=== PATIENT | female | born 1950 | race Caucasian/White ===

== ENCOUNTER 2020-01-02 09:07 | Emergency (ER) | payer MEDICARE ==
--- NOTE | 2020-01-02 09:32 | ERPHSYRPT ---
- History of Present Illness Time Seen by Provider: 01/02/20 09:25 Source: patient Exam Limitations: no limitations Patient Subjective Stated Complaint: pt reports a fall while push mowing her lawn last evening, states she believes she tripped and she landed her arms outst retched. states upon waking this morning she has tenderness to the right hand, mainly her palm. reports pain is increased with pathology assistant or weight bearing. pt denies other injuries at this time. Triage Nursing Assessment: pt is aox3, pupils perrl, afebrile, resps easy and non labored, cap refill < 3 seconds, radial pulses strong and equal, pt skin pink warm dry. slight swelling noted to the palmar aspect of the right hand. small approx 2cm superficial abrasion is noted as well. no drainage noted at this time. pt sensation, ROM intact. Physician History: Patient is a 69-year-old female who presents to our ED with complaints of right hand pain. Patient was pushing a lawnmower yesterday when she tripped. Patient landed on her right outstretched arm. Patient awoke this morning with a sore sensation to her right hand primarily on the palmar surface. Pain described as an ache that is well localized. No radiation. Pain worse with weightbearing movement and making a fist. Pain is mild to moderate in intensity. Patient declined pain medication. No other injuries reported. No BHT or LOC. No neck pain. Cervical spine cleared clinically. No extremity numbness tingling or weakness. Patient able to move her hand and wrist normally. However these movements elicit pain. Patient denies chest pain shortness of breath. Patient is a diabetic. Patient states her sugars are well controlled. Patient voices no other complaints this time. Occurred: yesterday Method of Injury: fell Quality: intermittent Severity of Pain-Max: moderate Severity of Pain-Current: mild Extremities Pain Location: hand: right Modifying Factors: Improves With: movement, rest Associated Symptoms: none Allergies/Adverse Reactions: Penicillins Allergy (Mild, Verified 01/02/20 09:23) Home Medications: Aspirin [Baby Aspirin] 81 mg PO DAILY 10/26/12 [History] Insulin Glargine [Lantus Insulin] 23 unit SQ HS 10/26/12 [History] Metformin HCl 1000 mg [Glucophage 1000 MG] 1,000 mg PO BID 10/26/12 [History] Fluoxetine HCl [Prozac] 20 mg PO DAILY 03/17/14 [History] Oxycodone HCl/Acetaminophen [Percocet 5-325 mg Tablet] 1 each PO Q6H PRN PRN 02/14/15 [History] Prasugrel HCl [Effient] 10 mg PO DAILY 02/14/15 [History] Pravastatin Sodium 40 mg PO DAILY 02/14/15 [History] Ranitidine HCl 150 mg PO DAILY 02/14/15 [History] Hx Tetanus, Diphtheria Vaccination/Date Given: Yes Hx Influenza Vaccination/Date Given: Yes Hx Pneumococcal Vaccination/Date Given: Yes Immunizations Up to Date: Yes Travel Risk - International Travel Have you traveled outside of the country in past 3 weeks: No - Coronavirus Screening Are you exhibiting any of the following symptoms?: No Close contact with a COVID-19 positive Pt in past 14-21 Days: No - Review of Systems Constitutional: No Symptoms, No Fever, No Chills Eyes: No Symptoms Ears, Nose, & Throat: No Symptoms Respiratory: No Symptoms, No Cough, No Dyspnea Cardiac: No Symptoms, No Chest Pain, No Edema, No Syncope Abdominal/Gastrointestinal: No Symptoms, No Abdominal Pain, No Nausea, No Vomiting, No Diarrhea Genitourinary Symptoms: No Symptoms, No Dysuria Musculoskeletal: No Symptoms, No Back Pain, No Neck Pain Skin: No Symptoms, No Rash Neurological: No Symptoms, No Dizziness, No Focal Weakness, No Sensory Changes Psychological: No Symptoms Endocrine: No Symptoms Hematologic/Lymphatic: No Symptoms Immunological/Allergic: No Symptoms All Other Systems: Reviewed and Negative - Past Medical History Pertinent Past Medical History: Yes Neurological History: No Pertinent History ENT History: Cataracts Cardiac History: Hypertension, Other Respiratory History: Asthma Endocrine Medical History: Diabetes Type II Musculoskeletal History: Fractures GI Medical History: No Pertinent History History: No Pertinent History Psycho-Social History: Depression Female Reproductive Disorders: No Pertinent History Other Medical History: stints in the heart - Past Surgical History Past Surgical History: Yes Neuro Surgical History: No Pertinent History Cardiac: Cardiac Catheterization, Cardiac Stent Respiratory: No Pertinent History Gastrointestinal: Cholecystectomy Genitourinary: No Pertinent History Musculoskeletal: No Pertinent History Female Surgical History: No Pertinent History Other Surgical History: carpal tunnel. lt ankle surgery - Social History Smoking Status: Never smoker Exposure to second hand smoke: No Drug Use: none Patient Lives Alone: Yes - Female History Hx Now: No - Nursing Vital Signs Nursing Vital Signs: Initial Vital Signs Temperature 98.5 F 01/02/20 09:14 Pulse Rate 69 01/02/20 09:14 Respiratory Rate 18 01/02/20 09:14 Blood Pressure 181/71 01/02/20 09:14 O2 Sat by Pulse Oximetry 99 01/02/20 09:14 Pain Scale Pain Intensity 5 - Physical Exam General Appearance: no apparent distress, alert Eyes, Ears, Nose, Throat Exam: normal ENT inspection, moist mucous membranes Neck Exam: non-tender, supple, full range of motion Cardiovascular/Respiratory Exam: chest non-tender, normal breath sounds, regular rate/rhythm, no respiratory distress Abdominal Exam: non-tender, No guarding Back Exam: normal inspection, normal range of motion, No vertebral tenderness Shoulder Exam: normal inspection, non-tender, no evidence of injury (Right hand shows slight swelling at the dorsal aspect. Overlying soft tissue intact. No obvious deformity otherwise. No abrasions or lacerations. Nailbed and nail plates are intact. Cap refill less than 2 seconds. Compartments are soft.), normal ROM Elbow/Forearm Exam: normal inspection, non-tender, no evidence of injury, normal ROM Wrist Exam: normal inspection, non-tender, no evidence of injury, normal ROM Neuro/Tendon Exam: normal sensation, normal motor functions Mental Status Exam: alert, oriented x 3, cooperative Skin Exam: normal color, warm, dry SpO2 Interpretation: normal SpO2: 99 O2 Delivery: Room Air - Course Nursing assessment & vital signs reviewed: Yes - Radiology Exams Hand X-ray Interpretation: Teleradiologist Report (No fracture or dislocation. No acute pathology observed. Osteopenia chronic degenerative changes.) Ordered Tests: Active Orders 24 hr Category Date Time Status HAND (MINIMUM 3 VIEWS) Stat Exams 01/02/20 09:26 Completed - Progress Progress: improved Progress Note: 01/02/20 09:34 Patient reassessed. She feels well. Pain controlled without pain medication. Patient declined pain medication. X-ray negative for acute pathology. No fracture or dislocation. Osteopenia chronic degenerative changes observed. No other injury sustained due to her fall. The fall was not associated with any sort of neuro cardiovascular symptomology. We will discharge patient home. Wrist splint for comfort provided. Patient agrees to follow-up with her primary care doctor within 48 hours for reevaluation. 01/02/20 10:13 Counseled pt/family regarding: diagnosis, need for follow-up, rad results - Departure Departure Disposition: Home Clinical Impression: Fall, Hand sprain, Contusion of right palm, Osteopenia Condition: Stable Critical Care Time: No Referrals: ASIYA SIMON [Primary Care Provider] - Additional Instructions: Discharge/Care Plan JUANY HOU was seen on 01/02/20 in the Emergency Room. The patient was counseled regarding Diagnosis,Lab results, Imaging studies, need for follow up and when to return to the Emergency Room. Prescriptions given: Discharge Note I have spoken with the patient and/or caregivers. I have explained the patient's condition, diagnosis and treatment plan based on the information available to me at this time. I have answered the patient's and/or caregiver's questions and addressed any concerns. The patient and/or caregivers have as good understanding of the patient's diagnosis, condition and treatment plan as can be expected at this point. The vital signs have been stable. The patient's condition is stable and appropriate for discharge from the emergency department. The patient will pursue further outpatient evaluation with the primary care physician or other designated or consulting physician as outlined in the discharge instructions. The patient and/or caregivers are agreeable to this plan of care and follow-up instructions have been explained in detail. The patient and/or caregivers have received these instruction. The patient/and or caregivers are aware that any significant change in condition or worsening of symptoms should prompt an immediate return to this or the closest emergency department or call 911.
--- NOTE | 2020-01-02 10:08 | XRAY ---
Indication: Pain following fall. Comparison: October 07, 2013. 3 view right hand again demonstrates osteopenia, minimal degenerative changes all IP joints, and radioulnar carpal degenerative chondrocalcinosis. No new/acute bony, articular, or soft tissue abnormalities.
[2020-01-02 10:10] VITALS: BP 163/78; PULSE 62
[2020-01-02 10:15] VITALS: O2SAT 99
== END 2020-01-02 10:24 | disposition home or self-care (01) ==
LOC: ED 09:07
DX: S63.91XA Sprain of unspecified part of right wrist and hand, initial encounter (principal); S60.221A Contusion of right hand, initial encounter; W17.89XA Other fall from one level to another, initial encounter; Y93.H2 Activity, gardening and landscaping; M85.80 Other specified disorders of bone density and structure, unspecified site
CPT/HCPCS: 73130; 99283; L3908

== ENCOUNTER 2021-11-06 11:15 | Emergency (ER) | payer MEDICARE ==
--- NOTE | 2021-11-06 11:54 | ERPHSYRPT ---
- History of Present Illness Source: patient Exam Limitations: no limitations Patient Subjective Stated Complaint: Pt states "I started to itch on my right elbow last week and the quick care gave me a pill and some cream. That elbow is better but now I itch on the other arm." Triage Nursing Assessment: PT presented alert and oriented X 3, skin wpd. Pt ambulates with an upright steady gait. pt resting comfortably on the bed, no rash noted. Physician History: 71 yo wf w L posterior upper arm pruritis/erythema x2 days. Pt had a similar place on her R posterior olecranon 1 wk ago which was treated w Keflex/Bactroban ointment per [facility]. She denies fever/ST/N/V/D/new meds/environmental exposures. R olecranon area improved. Timing/Duration: other (2 days) Quality: itchy Severity: mild Location: other (L posterior, upper arm) Possible Causes: no cause identified Modifying Factors: Improves With: scratching Associated Symptoms: rash, No blisters, No change in skin texture, No difficulty breathing, No edema, No fever, No flushing, No headache, No hives, No jaundice, No malaise, No nasal congestion, No numbness, No pallor, No paresthesia, No petechiae, No sore throat, No swelling/mass/lumps, No tingling Allergies/Adverse Reactions: Penicillins Allergy (Mild, Verified 07/06/21 13:32) Home Medications: Aspirin [Baby Aspirin] 81 mg PO DAILY 10/26/12 [History] Insulin Glargine [Lantus Insulin] 23 unit SQ HS 10/26/12 [History] Metformin HCl 1000 mg [Glucophage 1000 MG] 1,000 mg PO BID 10/26/12 [History] Pravastatin Sodium 40 mg PO DAILY 02/14/15 [History] Alendronate Sodium 70 mg [Fosamax 70 MG] 70 mg PO Q7D@0600 07/06/21 [History] Amlodipine Besylate 5 mg [Norvasc 5 mg] 5 mg PO DAILY 07/06/21 [History] Esomeprazole Magnesium [Nexium] 40 mg PO DAILY 07/06/21 [History] Gabapentin [Neurontin] 300 mg PO BID 07/06/21 [History] Liraglutide [Victoza 2-Krunal] 1.2 mg SQ DAILY 07/06/21 [History] Losartan Potassium 50 mg [Cozaar 50 MG] 25 mg PO BID 07/06/21 [History] Meclizine HCl 25 mg PO Q12H PRN PRN 07/06/21 [History] Semaglutide [Ozempic] 1 mg SQ UD 07/06/21 [History] Hx Tetanus, Diphtheria Vaccination/Date Given: Yes Hx Influenza Vaccination/Date Given: Yes Hx Pneumococcal Vaccination/Date Given: Yes Immunizations Up to Date: Yes Travel Risk - International Travel Have you traveled outside of the country in past 3 weeks: No - Coronavirus Screening Are you exhibiting any of the following symptoms?: No Close contact with a COVID-19 positive Pt in past 14-21 Days: No - Vaccine Status Have you recieved a Covid-19 vaccination: Yes Beauty Specialist: Moderna - Vaccination Dates Date of 2cond Vaccination (if applicable): 2020 - Review of Systems Constitutional: No Symptoms Eyes: No Symptoms Ears, Nose, & Throat: No Symptoms Respiratory: No Symptoms Cardiac: No Symptoms Abdominal/Gastrointestinal: No Symptoms Genitourinary Symptoms: No Symptoms Musculoskeletal: No Symptoms Skin: No Symptoms, Rash Neurological: No Symptoms Psychological: No Symptoms Endocrine: No Symptoms Hematologic/Lymphatic: No Symptoms Immunological/Allergic: No Symptoms - Past Medical History Pertinent Past Medical History: Yes Neurological History: No Pertinent History ENT History: Cataracts Cardiac History: Hypertension, Other Respiratory History: Asthma Endocrine Medical History: Diabetes Type II Musculoskeletal History: Fractures GI Medical History: No Pertinent History History: No Pertinent History Psycho-Social History: Depression Female Reproductive Disorders: No Pertinent History Other Medical History: stints in the heart - Past Surgical History Past Surgical History: Yes Neuro Surgical History: No Pertinent History Cardiac: Cardiac Catheterization, Cardiac Stent Respiratory: No Pertinent History Gastrointestinal: Cholecystectomy Genitourinary: No Pertinent History Musculoskeletal: No Pertinent History Female Surgical History: No Pertinent History Other Surgical History: carpal tunnel. lt ankle surgery - Social History Smoking Status: Never smoker Exposure to second hand smoke: No Drug Use: none Patient Lives Alone: No Significant Family History: no pertinent family hx - Nursing Vital Signs Nursing Vital Signs: Initial Vital Signs Temperature 98.4 F 11/06/21 11:22 Pulse Rate 73 11/06/21 11:22 Respiratory Rate 18 11/06/21 11:22 Blood Pressure 134/67 11/06/21 11:22 O2 Sat by Pulse Oximetry 98 11/06/21 11:22 Pain Scale Pain Intensity 0 WNL - Physical Exam General Appearance: no apparent distress Eye Exam: PERRL/EOMI Ears, Nose, Throat Exam: normal ENT inspection, TMs normal, pharynx normal, moist mucous membranes Neck Exam: normal inspection, non-tender, supple, full range of motion, No meningismus, No mass, No Brudzinski, No Kernig's Respiratory Exam: normal breath sounds, lungs clear, airway intact Cardiovascular Exam: regular rate/rhythm, normal heart sounds, normal peripheral pulses, capillary refill <2 sec, No murmur Gastrointestinal/Abdomen Exam: soft, normal bowel sounds Back Exam: normal inspection, normal range of motion Extremity Exam: other (Small, erythematous excoriated area L posterior tricel area) Neurologic Exam: alert, oriented x 3, cooperative, rn practitioner II-XII nml as tested, normal mood/affect, nml cerebellar function, nml station & gait, sensation nml, No motor deficits, No sensory deficit Skin Exam: rash Lymphatic Exam: No adenopathy SpO2 Interpretation: normal SpO2: 98 O2 Delivery: Room Air - Course Nursing assessment & vital signs reviewed: Yes - Progress Progress Note: 11/06/21 11:57 Rash most likely contact dermatitis/Doubt cellulitis at this time Counseled pt/family regarding: diagnosis, need for follow-up - Departure Departure Disposition: Home Clinical Impression: Contact dermatitis Condition: Stable Critical Care Time: No Referrals: ASIYA SIMON [Primary Care Provider] - Follow up/PCP as directed Instructions: Contact Dermatitis (DC) Additional Instructions: Apply Kenalog cream to affected area 2-3 times a day for 10-14 days Follow up with your family MD in 2-3 days Return to ER for increasing redness or temperature greater than 100.5 Atarax for itching as needed Prescriptions: Hydroxyzine HCl 25 mg [Atarax 25 mg] 25 mg PO QID PRN PRN #20 tablet PRN Reason: Itching Triamcinolone 0.1% Cream [Kenalog 0.1% Cream 15 gm] 0.5 gm TP TID #15 tu
[2021-11-06 12:19] VITALS: BP 130/84; PULSE 70
[2021-11-06 14:15] VITALS: O2SAT 98
== END 2021-11-06 12:19 | disposition home or self-care (01) ==
LOC: ED 11:15
DX: L25.9 Unspecified contact dermatitis, unspecified cause (principal); L29.9 Pruritus, unspecified; I10 Essential (primary) hypertension; E11.9 Type 2 diabetes mellitus without complications; Z79.84 Long term (current) use of oral hypoglycemic drugs; Z79.899 Other long term (current) drug therapy
CPT/HCPCS: 99283

== ENCOUNTER 2022-10-30 09:59 | Emergency (ER) | payer MEDICARE ==
--- NOTE | 2022-10-30 10:06 | ERPHSYRPT ---
- History of Present Illness Time Seen by Provider: 10/30/22 10:06 Source: patient Exam Limitations: no limitations Physician History: This is a 72-year-old white female patient of Dr. Sherry Simon who is an insulin-dependent diabetic, has hypertension, hyperlipidemia, asthma and coronary artery disease and presents with rash and areas of itching in her bilateral upper extremities and lower lower extremities. She did not see any bug bites or insect bites. She has no known new exposures. However, she was at a family member's home and outside a couple days ago. The only new medication she stated that she has is iron which she has been taking for a month. Patient had "skin rash" a year ago, 10/2021, and patient was given a prescription for Atarax and topical triamcinolone which helped her symptoms. However, after being evaluated and treated in the [facility] over the last day or 2 with Benadryl and topical triamcinolone, her symptoms or not any better. Patient denies shortness of breath. She denies chest pain. She has had no nausea vomiting or diarrhea. She has no abdominal pain. Patient is never seen an certified hyperbaric technologist or sumo wrestler. Timing/Duration: day(s) Quality: painful Severity: mild (To moderate) Location: extremities (Bilateral upper extremities and bilateral lower extremities below the knee) Possible Causes: exposure to allergen, other (Possibly insect bite) Associated Symptoms: rash, No difficulty breathing, No fever, No sore throat Allergies/Adverse Reactions: Penicillins Allergy (Mild, Verified 10/30/22 10:17) Home Medications: Aspirin [Baby Aspirin] 81 mg PO DAILY 10/26/12 [History] Insulin Glargine [Lantus Insulin] 23 unit SQ HS 10/26/12 [History] Metformin HCl 1000 mg [Glucophage 1000 MG] 1,000 mg PO BID 10/26/12 [History] Pravastatin Sodium 40 mg PO DAILY 02/14/15 [History] Alendronate Sodium 70 mg [Fosamax 70 MG] 70 mg PO Q7D@0600 07/06/21 [History] Amlodipine Besylate 5 mg [Norvasc 5 mg] 5 mg PO DAILY 07/06/21 [History] Esomeprazole Magnesium [Nexium] 40 mg PO DAILY 07/06/21 [History] Gabapentin [Neurontin] 300 mg PO BID 07/06/21 [History] Liraglutide [Victoza 2-Krunal] 1.2 mg SQ DAILY 07/06/21 [History] Losartan Potassium 50 mg [Cozaar 50 MG] 25 mg PO BID 07/06/21 [History] Meclizine HCl 25 mg PO Q12H PRN PRN 07/06/21 [History] Semaglutide [Ozempic] 1 mg SQ UD 07/06/21 [History] Hx Tetanus, Diphtheria Vaccination/Date Given: Yes Hx Influenza Vaccination/Date Given: Yes Hx Pneumococcal Vaccination/Date Given: Yes Travel Risk - International Travel Have you traveled outside of the country in past 3 weeks: No - Coronavirus Screening Are you exhibiting any of the following symptoms?: No Close contact with a COVID-19 positive Pt in past 14-21 Days: No - Vaccine Status Have you recieved a Covid-19 vaccination: Yes Press Tender 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: Ster[employer]im[employer] - Vaccination Dates Date of 2cond Vaccination (if applicable): 2020 - Review of Systems Constitutional: No Symptoms Eyes: No Symptoms Ears, Nose, & Throat: No Symptoms Respiratory: No Symptoms Cardiac: No Symptoms Abdominal/Gastrointestinal: No Symptoms Genitourinary Symptoms: No Symptoms Musculoskeletal: No Symptoms Skin: Rash Neurological: No Symptoms Psychological: No Symptoms Endocrine: No Symptoms Hematologic/Lymphatic: No Symptoms Immunological/Allergic: No Symptoms All Other Systems: Reviewed and Negative - Past Medical History Pertinent Past Medical History: Yes Neurological History: No Pertinent History ENT History: Cataracts Cardiac History: Hypertension, Other Respiratory History: Asthma Endocrine Medical History: Diabetes Type II Musculoskeletal History: Fractures GI Medical History: No Pertinent History History: No Pertinent History Psycho-Social History: Depression Female Reproductive Disorders: No Pertinent History Other Medical History: stints in the heart - Past Surgical History Past Surgical History: Yes Neuro Surgical History: No Pertinent History Cardiac: Cardiac Catheterization, Cardiac Stent Respiratory: No Pertinent History Gastrointestinal: Cholecystectomy Genitourinary: No Pertinent History Musculoskeletal: No Pertinent History Female Surgical History: No Pertinent History Other Surgical History: carpal tunnel. lt ankle surgery - Social History Smoking Status: Never smoker Exposure to second hand smoke: No Drug Use: none Patient Lives Alone: No Significant Family History: no pertinent family hx - Nursing Vital Signs Nursing Vital Signs: Initial Vital Signs Temperature 97.7 F 10/30/22 10:08 Pulse Rate 63 10/30/22 10:08 Blood Pressure 141/75 10/30/22 10:08 O2 Sat by Pulse Oximetry 100 10/30/22 10:08 Pain Scale Pain Intensity 0 - Physical Exam General Appearance: no apparent distress, alert, anxiety Eye Exam: PERRL/EOMI, eyes nml inspection Ears, Nose, Throat Exam: normal ENT inspection, moist mucous membranes Neck Exam: normal inspection, non-tender, supple, full range of motion Respiratory Exam: normal breath sounds, lungs clear, airway intact, No chest tenderness, No respiratory distress Cardiovascular Exam: regular rate/rhythm, normal heart sounds, normal peripheral pulses Gastrointestinal/Abdomen Exam: soft, normal bowel sounds, No tenderness Pelvic Exam: not done Rectal Exam: not done Back Exam: normal inspection, normal range of motion, No CVA tenderness, No vertebral tenderness Extremity Exam: normal range of motion, pelvis stable Neurologic Exam: alert, oriented x 3, cooperative, post graduate intern II-XII nml as tested, normal mood/affect, nml cerebellar function, nml station & gait, sensation nml Skin Exam: rash (There are areas of punctate rash with some eschars overlying them on the bilateral upper extremities and bilateral lower extremities below the knee where she may have been scratching. There is also some mild fine nonraised pink rash patches present in these areas as well. No cellulitis present) Lymphatic Exam: No adenopathy SpO2 Interpretation: normal O2 Delivery: Room Air - Course Nursing assessment & vital signs reviewed: Yes - Progress Progress: unchanged Counseled pt/family regarding: diagnosis, need for follow-up, rad results - Departure Departure Disposition: Home Clinical Impression: Dermatitis, Pruritus Condition: Stable Critical Care Time: No Referrals: ASIYA SIMON [Primary Care Provider] - Follow up/PCP as directed Additional Instructions: Keep all rash sites clean with soap and water. Keep the areas moist with a unscented lotion. Stop your Benadryl. Use Atarax and prednisone for the rash and itching. Call your primary care provider tomorrow, 10/31/2022 to make arrangements for a follow-up appointment in the next 3 to 5 days. Prescriptions: Hydroxyzine HCl 25 mg [Atarax 25 mg] 25 mg PO TID PRN #20 tablet PRN Reason: Itching Prednisone 10 mg [Deltasone 10 mg] 10 mg PO TID #12 tablet
[2022-10-30 10:17] VITALS: BP 141/75; PULSE 63; O2SAT 100
[2022-10-30] MEDS ORDERED: DELTASONE 20 MG PO ONE (10:28)
[2022-10-30] MEDS ORDERED: ATARAX 25 MG PO ONE (10:28)
== END 2022-10-30 10:46 | disposition home or self-care (01) ==
LOC: ED 09:59
DX: L30.9 Dermatitis, unspecified (principal); L29.9 Pruritus, unspecified; E11.9 Type 2 diabetes mellitus without complications; I10 Essential (primary) hypertension; E78.5 Hyperlipidemia, unspecified; Z79.4 Long term (current) use of insulin; Z79.84 Long term (current) use of oral hypoglycemic drugs; Z79.85 Long-term (current) use of injectable non-insulin antidiabetic drugs; Z79.899 Other long term (current) drug therapy
CPT/HCPCS: 99282; A9270-GY

== ENCOUNTER 2022-12-04 13:24 | Emergency (ER) | payer MEDICARE ==
[2022-12-04 14:18] VITALS: BP 143/64; PULSE 68; O2SAT 98
--- NOTE | 2022-12-04 14:57 | ERPHSYRPT ---
- History of Present Illness Time Seen by Provider: 12/04/22 13:34 Source: patient Exam Limitations: no limitations Patient Subjective Stated Complaint: Rash- itching Triage Nursing Assessment: Patient ambulated back to ED and transferred self to bed. Patient A+o x 3. Patient's skin pink, warm and dry. Patient states she woke up itching to her entire body at 0400. Patient denies pain or discomfort. Patient has small rash noted to right inner arm. Physician History: 72-year-old female with history of coronary artery disease status post stenting, diabetes mellitus poorly controlled presented in the ER with chief complaint of itching. Patient reports she woke up this morning with itching all over more in the left upper extremity and left lower leg. Denies any new medications/detergents/soap/shampoo or lotion use. Does report having similar symptoms in the past. Denies any difficulty breathing, palpitation or throat closing sensations. Timing/Duration: today Quality: itchy Severity: moderate Location: generalized Possible Causes: no cause identified Associated Symptoms: rash, No blisters, No edema, No fever, No flushing, No paresthesia, No swelling/mass/lumps Allergies/Adverse Reactions: Penicillins Allergy (Mild, Verified 12/04/22 14:08) Home Medications: Aspirin [Baby Aspirin] 81 mg PO DAILY 10/26/12 [History] Insulin Glargine [Lantus Insulin] 23 unit SQ HS 10/26/12 [History] Metformin HCl 1000 mg [Glucophage 1000 MG] 1,000 mg PO BID 10/26/12 [History] Pravastatin Sodium 40 mg PO DAILY 02/14/15 [History] Alendronate Sodium 70 mg [Fosamax 70 MG] 70 mg PO Q7D@0600 07/06/21 [H istory] Amlodipine Besylate 5 mg [Norvasc 5 mg] 5 mg PO DAILY 07/06/21 [History] Esomeprazole Magnesium [Nexium] 40 mg PO DAILY 07/06/21 [History] Gabapentin [Neurontin] 300 mg PO BID 07/06/21 [History] Liraglutide [Victoza 2-Krunal] 1.2 mg SQ DAILY 07/06/21 [History] Losartan Potassium 50 mg [Cozaar 50 MG] 25 mg PO BID 07/06/21 [History] Meclizine HCl 25 mg PO Q12H PRN PRN 07/06/21 [History] Semaglutide [Ozempic] 1 mg SQ UD 07/06/21 [History] Hx Tetanus, Diphtheria Vaccination/Date Given: Yes Hx Influenza Vaccination/Date Given: Yes Hx Pneumococcal Vaccination/Date Given: Yes Immunizations Up to Date: Yes Travel Risk - International Travel Have you traveled outside of the country in past 3 weeks: No - Coronavirus Screening Are you exhibiting any of the following symptoms?: No Close contact with a COVID-19 positive Pt in past 14-21 Days: No - Vaccine Status Have you recieved a Covid-19 vaccination: Yes 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[employer] - Vaccination Dates Date of 2cond Vaccination (if applicable): 2020 - Review of Systems Constitutional: No Symptoms Ears, Nose, & Throat: No Symptoms Respiratory: No Symptoms Cardiac: No Symptoms Genitourinary Symptoms: No Symptoms Musculoskeletal: No Symptoms Skin: Pruritis, Skin Lesions Neurological: No Symptoms Psychological: No Symptoms Hematologic/Lymphatic: No Symptoms Immunological/Allergic: No Symptoms - Past Medical History Pertinent Past Medical History: Yes Neurological History: No Pertinent History ENT History: Cataracts Cardiac History: Hypertension, Other Respiratory History: Asthma Endocrine Medical History: Diabetes Type II Musculoskeletal History: Fractures GI Medical History: No Pertinent History History: No Pertinent History Psycho-Social History: Depression Female Reproductive Disorders: No Pertinent History Other Medical History: stints in the heart - Past Surgical History Past Surgical History: Yes Neuro Surgical History: No Pertinent History Cardiac: Cardiac Catheterization, Cardiac Stent Respiratory: No Pertinent History Gastrointestinal: Cholecystectomy Genitourinary: No Pertinent History Musculoskeletal: No Pertinent History Female Surgical History: No Pertinent History Other Surgical History: carpal tunnel. lt ankle surgery - Social History Smoking Status: Never smoker Exposure to second hand smoke: No Drug Use: none Patient Lives Alone: No Significant Family History: no pertinent family hx - Nursing Vital Signs Nursing Vital Signs: Initial Vital Signs Temperature 97.2 F 12/04/22 14:09 Pulse Rate 68 12/04/22 14:09 Respiratory Rate 18 12/04/22 14:09 Blood Pressure 143/64 12/04/22 14:09 O2 Sat by Pulse Oximetry 98 12/04/22 14:09 Pain Scale Pain Intensity 0 - Physical Exam General Appearance: no apparent distress Eye Exam: PERRL/EOMI Ears, Nose, Throat Exam: normal ENT inspection, pharynx normal Neck Exam: normal inspection, non-tender, supple, full range of motion Respiratory Exam: normal breath sounds, lungs clear Cardiovascular Exam: regular rate/rhythm, normal heart sounds Back Exam: normal inspection Extremity Exam: normal range of motion Neurologic Exam: alert, oriented x 3, cooperative, 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 Distinct scattered areas of redness on the left lower extremity.) SpO2 Interpretation: normal SpO2: 98 O2 Delivery: Room Air - Progress Progress: unchanged Progress Note: 12/04/22 14:54 72-year-old female with history of coronary artery disease status post stenting, diabetes mellitus poorly controlled presented in the ER with chief complaint of itching. Patient reports she woke up this morning with itching all over more in the left upper extremity and left lower leg. Denies any new medications /detergents/soap/shampoo or lotion use. Does report having similar symptoms in the past. Denies any difficulty breathing, palpitation or throat closing sensations. Patient has distinct areas of redness and itching around. Could be insect bite. Could be allergic reaction to something she came across. Patient blood sugar is not well controlled, we will not give her systemic steroid but topical steroid and hydroxyzine. Outpatient follow-up recommended. Discussed signs symptoms of worsening needing return to ER which she seems understanding. Counseled pt/family regarding: diagnosis, need for follow-up Medical Desision Making - Risk of complications The pt has a mod risk of morbidity or mortality based on: Need for prescription drug management - Departure Departure Disposition: Home Clinical Impression: Pruritus Condition: Stable Critical Care Time: No Referrals: ASIYA SIMON [Primary Care Provider] - Follow up with PCP 1 day Instructions: Skin Rash (DC) Additional Instructions: Follow-up with primary care for reevaluation. Take hydroxyzine as needed for itching. Return to ER for worsening of rash or if having difficulty breathing/throat closing sensations etc. Prescriptions: Hydroxyzine HCl 25 mg [Atarax 25 mg] 25 mg PO Q6H PRN #12 tablet PRN Reason: Itching Betamethasone/Propylene Glyc [Betamethasone Dp Aug 0.05% Crm] 30 gm TP TID 7 Days #1 tu
== END 2022-12-04 15:14 | disposition home or self-care (01) ==
LOC: ED 13:24
DX: L29.9 Pruritus, unspecified (principal); E11.9 Type 2 diabetes mellitus without complications; I10 Essential (primary) hypertension; Z79.4 Long term (current) use of insulin; Z79.84 Long term (current) use of oral hypoglycemic drugs; Z79.85 Long-term (current) use of injectable non-insulin antidiabetic drugs; Z79.899 Other long term (current) drug therapy
CPT/HCPCS: 99281

== ENCOUNTER 2022-12-17 10:03 | Emergency (ER) | payer MEDICARE ==
[2022-12-17 10:17] VITALS: BP 120/66; PULSE 70; RESP 18; TEMP 97.9
[2022-12-17 10:18] VITALS: O2SAT 98
--- NOTE | 2022-12-17 10:39 | ERPHSYRPT ---
- History of Present Illness Time Seen by Provider: 12/17/22 10:20 Source: patient Exam Limitations: no limitations Patient Subjective Stated Complaint: Skin issues to left lower leg Triage Nursing Assessment: Patient ambulated back to ED and transferred self to bed. Patient A+O X 3. Patient's skin pink, warm and dry. Patient states she has been itching her entire body from a rash she had two weeks ago and was recently seen and given PRN atarax and cream, which she is out. Patient states she has scratched her lower left outer leg during itching causing two open areas. Patient complains of pain 4/10. Left lower outer leg noted to have two scabbed areas that are red, swollen and warm. Physician History: This is a 72-year-old white female patient who for last 2 weeks had been complaining of rash over left lower leg and itching associated with it. She is scratched the leg to the point where now she has secondary skin infection. It is red it is warm. Patient had been given Atarax and a topical cream to use. She is out of the cream and the Atarax. She has had no fevers. This on the anterior lateral aspect of her left lower extremity. Patient is diabetic, has hyperlipidemia and hypertension. Timing/Duration: week(s) (2) Quality: itchy Severity: mild (To moderate) Location: extremities ( anterior lateral aspect left lower leg below the knee) Modifying Factors: Improves With: antihistamine Allergies/Adverse Reactions: Penicillins Allergy (Mild, Verified 12/17/22 10:07) Home Medications: Aspirin [Baby Aspirin] 81 mg PO DAILY 10/26/12 [History] Insulin Glargine [Lantus Insulin] 23 unit SQ HS 10/26/12 [History] Metformin HCl 1000 mg [Glucophage 1000 MG] 1,000 mg PO BID 10/26/12 [History] Pravastatin Sodium 40 mg PO DAILY 02/14/15 [History] Alendronate Sodium 70 mg [Fosamax 70 MG] 70 mg PO Q7D@0600 07/06/21 [History] Amlodipine Besylate 5 mg [Norvasc 5 mg] 5 mg PO DAILY 07/06/21 [History] Esomeprazole Magnesium [Nexium] 40 mg PO DAILY 07/06/21 [History] Gabapentin [Neurontin] 300 mg PO BID 07/06/21 [History] Liraglutide [Victoza 2-Krunal] 1.2 mg SQ DAILY 07/06/21 [History] Losartan Potassium 50 mg [Cozaar 50 MG] 25 mg PO BID 07/06/21 [History] Meclizine HCl 25 mg PO Q12H PRN PRN 07/06/21 [History] Semaglutide [Ozempic] 1 mg SQ UD 07/06/21 [History] Hx Tetanus, Diphtheria Vaccination/Date Given: Yes Hx Influenza Vaccination/Date Given: Yes Hx Pneumococcal Vaccination/Date Given: Yes Immunizations Up to Date: Yes Travel Risk - International Travel Have you traveled outside of the country in past 3 weeks: No - Coronavirus Screening Are you exhibiting any of the following symptoms?: No Close contact with a COVID-19 positive Pt in past 14-21 Days: No - Vaccine Status Have you recieved a Covid-19 vaccination: 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[employer] - Vaccination Dates Date of 2cond Vaccination (if applicable): 2020 - Review of Systems Constitutional: No Symptoms Eyes: No Symptoms Ears, Nose, & Throat: No Symptoms Respiratory: No Symptoms Cardiac: No Symptoms Abdominal/Gastrointestinal: No Symptoms Genitourinary Symptoms: No Symptoms Musculoskeletal: No Symptoms Skin: Cellulitis (Anterior aspect left lower extremity below the knee) Neurological: No Symptoms Psychological: No Symptoms Endocrine: No Symptoms Hematologic/Lymphatic: No Symptoms Immunological/Allergic: No Symptoms All Other Systems: Reviewed and Negative - Past Medical History Pertinent Past Medical History: Yes Neurological History: No Pertinent History ENT History: Cataracts Cardiac History: Hypertension, Other Respiratory History: Asthma Endocrine Medical History: Diabetes Type II Musculoskeletal History: Fractures GI Medical History: No Pertinent History History: No Pertinent History Psycho-Social History: Depression Female Reproductive Disorders: No Pertinent History Other Medical History: stints in the heart - Past Surgical History Past Surgical History: Yes Neuro Surgical History: No Pertinent History Cardiac: Cardiac Catheterization, Cardiac Stent Respiratory: No Pertinent History Gastrointestinal: Cholecystectomy Genitourinary: No Pertinent History Musculoskeletal: No Pertinent History Female Surgical History: No Pertinent History Other Surgical History: carpal tunnel. lt ankle surgery - Social History Smoking Status: Never smoker Exposure to second hand smoke: No Drug Use: none Patient Lives Alone: No Significant Family History: no pertinent family hx - Nursing Vital Signs Nursing Vital Signs: Initial Vital Signs Temperature 97.9 F 12/17/22 10:10 Pulse Rate 70 12/17/22 10:10 Respiratory Rate 18 12/17/22 10:10 Blood Pressure 120/66 12/17/22 10:10 O2 Sat by Pulse Oximetry 96 12/17/22 10:10 Pain Scale Pain Intensity 4 - Physical Exam General Appearance: no apparent distress, alert, anxiety Eye Exam: PERRL/EOMI, eyes nml inspection Ears, Nose, Throat Exam: normal ENT inspection, moist mucous membranes Neck Exam: normal inspection, non-tender, supple, full range of motion Respiratory Exam: airway intact, No chest tenderness, No respiratory distress Gastrointestinal/Abdomen Exam: No tenderness Pelvic Exam: not done Rectal Exam: not done Back Exam: normal inspection, normal range of motion, No CVA tenderness, No vertebral tenderness Extremity Exam: normal range of motion, pelvis stable, inflammation (Anterior lateral aspect left lower leg below the knee), tenderness (Anterior lateral aspect left lower extremity below the knee) Neurologic Exam: alert, oriented x 3, cooperative, 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 The level complexity and the work-up performed is based on review the patient's past medical history, review of the patient's medication list, review the patient's allergy list, history present illness and physical findings on examination. This patient does not require laboratory or radiographic studies. Patient has cellulitis left lower extremity. This is likely a secondary skin infection secondary to patient scratching her left lower extremity. We will provide her with Levaquin 500 mg orally and prednisone 20 mg orally here in the emergency department today followed by a prescription remotely sent to her pharmacy for Levaquin 5 mg orally daily for 7 days, prednisone 10 mg orally twice a day for 3 days, Atarax 25 mg 3 times a day to control itching. She is to follow-up with her primary care provider on 12/19/2022 Counseled pt/family regarding: diagnosis, need for follow-up Medical Desision Making - Diagnostic Testing Diagnostic test were ordered, analyzed, and reviewed by me: No - Risk of complications The pt has a mod risk of morbidity or mortality based on: Need for prescription drug management - Departure Departure Disposition: Home Clinical Impression: Left leg cellulitis Condition: Stable Critical Care Time: No Referrals: ASIYA SIMON [Primary Care Provider] - Follow up/PCP as directed Additional Instructions: Do not scratch. Wear gloves in order to not scratch your skin. Take the prescriptions as prescribed. Keep the areas clean daily with soap and water. Do not apply any lotions ointments or creams to the sites. Call your primary care provider on 12/19/2022 for further evaluation management. Add [id number] Benadryl 25 mg orally 3 times a day for the next 5 days. Monitor your blood sugar levels closely while taking your prednisone medication. Prescriptions: Prednisone 10 mg [Deltasone 10 mg] 10 mg PO BID #6 tablet Levofloxacin [Levaquin 500 MG Tablet] 500 mg PO DAILY #7 tablet
[2022-12-17] MEDS ORDERED: Levofloxacin 500 MG Tablet PO ONE (10:43)
[2022-12-17] MEDS ORDERED: DELTASONE 20 MG PO ONE (10:43)
[2022-12-17] MEDS ORDERED: Levofloxacin 500 MG Tablet ONE (10:49)
[2022-12-17] MEDS ORDERED: DELTASONE 20 MG ONE (10:49)
== END 2022-12-17 11:05 | disposition home or self-care (01) ==
LOC: ED 10:03
DX: L03.116 Cellulitis of left lower limb (principal); E11.9 Type 2 diabetes mellitus without complications; E78.5 Hyperlipidemia, unspecified; I10 Essential (primary) hypertension; Z79.4 Long term (current) use of insulin; Z79.84 Long term (current) use of oral hypoglycemic drugs; Z79.85 Long-term (current) use of injectable non-insulin antidiabetic drugs; Z79.52 Long term (current) use of systemic steroids; Z79.899 Other long term (current) drug therapy
CPT/HCPCS: 99282; A9270-GY

== ENCOUNTER 2023-11-09 20:47 | Emergency (ER) | payer MEDICARE ==
[2023-11-09 21:16] VITALS: RESP 18; TEMP 97.5; O2SAT 99
[2023-11-09] MEDS ORDERED: Sodium Chloride 0.9% 1000 ML 1,000 ML ONE (21:17)
[2023-11-09] MEDS: Sodium Chloride 0.9% 1000 ML 1,000 ML IV SCH (21:20)
[2023-11-09 21:21] LABS: Absolute Neutrophil Ct (ANC) 5.23 x10^3/uL (1.56-6.13); BASOPHIL % 0.6 % (0.1-1.2); Basophil (Absolute #) 0.05 x10^3/uL (0.01-0.08); Eosinophil % 3.5 % (0.7-5.8); Eosinophil (Absolute #) 0.29 x10^3/uL (0.04-0.36); Hematocrit 37.8 % (34.1-44.9); Hemoglobin 12.2 g/dL (11.2-15.7); IMMATURE GRAN # 0.03 x10^3u/L (0.001-0.031); IMMATURE GRAN % 0.4 % (0.001-0.429); Lymphocytes % 23.9 % (19.3-51.7); Mean Cell Volume 88.9 fL (79.4-94.8); Mean Corpuscular Hemoglobin 28.7 pg (25.6-32.2); Mean Corpuscular Hgb Concent. 32.3 g/dL (32.2-35.5); Mean Platelet Volume 9.1 fL (9.4-12.3); Monocyte (Absolute #) 0.76 x10^3/uL (0.24-0.86); Monocytes % 9.1 % (4.7-12.5); Neutrophil % 62.5 % (34.0-71.1); Platelet Count 213 x10^3/uL (182-369); Red Blood Count 4.25 x10^6/uL (3.93-5.22); Red Cell Distribution Width 13.2 % (11.7-14.4); White Blood Count 8.4 x10^3/uL (3.98-10.04)
[2023-11-09 21:38] LABS: ALBUMIN 3.9 g/dL (3.5-5.0); ANION GAP 14.1 MEQ/L (5-15); BILIRUBIN,TOTAL 0.5 mg/dL (0.2-1.3); Calcium 9.1 mg/dL (8.4-10.2); Creatinine 1 1.39 mg/dL (0.52-1.04); EST GLOMERULAR FILTRATION RATE 40.3 ML/MIN; Potassium 3.4 mmol/L (3.5-5.1); Total Protein 6.9 g/dL (6.3-8.2)
--- NOTE | 2023-11-09 23:08 | ERPHSYRPT ---
- History of Present Illness Time Seen by Provider: 11/09/23 20:51 Historian: patient, family Exam Limitations: no limitations Patient Subjective Stated Complaint: pt states that her bowels have not moved in almost 3 weeks. pt states that when she goes it is like water Triage Nursing Assessment: pt ambulated into the er; pt is axo x4; c/o constip ation; pt states 8/10 pain to lower abd; abd is soft, non tender; active bowel sounds in all quads; denies N/V; skin PDW; no respiratory distress present; hypertensive Physician History: 73-year-old female with a history of hypertension, diabetes mellitus presented in the ER with complaint of constipation. Patient reports having loose stool for the last 2-1/2 weeks with lower abdominal/pelvic pain. Patient denies any weight loss, no fever or chills reported. Denies any nausea or vomiting. She was seen outpatient and was started on Linzess but still does not have a regular bowel movement. Allergies/Adverse Reactions: Penicillins Allergy (Mild, Verified 11/09/23 20:54) Home Medications: Aspirin [Baby Aspirin] 81 mg PO DAILY 10/26/12 [History] Amlodipine Besylate 5 mg [Norvasc 5 mg] 2.5 mg PO DAILY 07/06/21 [History] Gabapentin [Neurontin] 300 mg PO HS 07/06/21 [History] Losartan Potassium 50 mg [Cozaar 50 MG] 25 mg PO BID 07/06/21 [History] Atorvastatin Calcium 40 mg PO DAILY 11/09/23 [History] Dapagliflozin Propanediol [Farxiga] 10 mg PO DAILY 11/09/23 [History] Denosumab 60 mg [Prolia 60 mg Injection] 60 mg SQ UD 11/09/23 [History] Donepezil HCl [Aricept] 5 mg PO DAILY 11/09/23 [History] Linaclotide [Linzess] 72 mcg PO DAILY 11/09/23 [History] Sertraline HCl 50 mg [Zoloft 50 mg Tablet] 50 mg PO DAILY 11/09/23 [History] Tirzepatide [Mounjaro] 5 mg SQ WEEKLY 11/09/23 [History] Zolpidem Tartrate 10 mg [Ambien 10 MG] 10 mg PO HS 11/09/23 [History] Hx Tetanus, Diphtheria Vaccination/Date Given: Yes Hx Influenza Vaccination/Date Given: Yes Hx Pneumococcal Vaccination/Date Given: Yes Immunizations Up to Date: No Travel Risk - International Travel Have you traveled outside of the country in past 3 weeks: No - Emerging Infectious Disease Are you exhibiting symptoms associated with any current EIDs: No - Review of Systems Constitutional: Fatigue Eyes: No Symptoms Ears, Nose, & Throat: No Symptoms Respiratory: No Symptoms Cardiac: No Symptoms Abdominal/Gastrointestinal: Abdominal Pain, Constipation Genitourinary Symptoms: No Symptoms Musculoskeletal: No Symptoms Skin: No Symptoms Neurological: No Symptoms Endocrine: No Symptoms - Past Medical History Pertinent Past Medical History: Yes Neurological History: No Pertinent History ENT History: Cataracts Cardiac History: Hypertension, Other Respiratory History: Asthma Endocrine Medical History: Diabetes Type II Musculoskeletal History: Fractures GI Medical History: No Pertinent History History: No Pertinent History Psycho-Social History: Depression Female Reproductive Disorders: No Pertinent History Other Medical History: stints in the heart - Past Surgical History Past Surgical History: Yes Neuro Surgical History: No Pertinent History Cardiac: Cardiac Catheterization, Cardiac Stent Respiratory: No Pertinent History Gastrointestinal: Cholecystectomy Genitourinary: No Pertinent History Musculoskeletal: No Pertinent History Female Surgical History: No Pertinent History Other Surgical History: carpal tunnel. lt ankle surgery Significant Family History: no pertinent family hx - Social History Smoking Status: Never smoker Exposure to second hand smoke: No Drug Use: none Patient Lives Alone: No - Social Determinants of Health Will the patient participate in the screening: Yes Do you worry about a steady place to live?: No Do you have any problems with any of the following?: No known problems In the past 12 months,have you had to go without utilities?: No Transportation Issues: No Has anyone in your support network made you feel unsafe?: No Have you or anyone in your house had to go without enough: No - Nursing Vital Signs Nursing Vital Signs: Initial Vital Signs Temperature 97.5 F 11/09/23 21:00 Pulse Rate 70 11/09/23 21:00 Respiratory Rate 18 11/09/23 21:00 Blood Pressure 132/75 11/09/23 21:00 O2 Sat by Pulse Oximetry 99 11/09/23 21:00 Pain Scale Pain Intensity 8 - Physical Exam General Appearance: no apparent distress, alert Eye Exam: PERRL/EOMI Ears, Nose, Throat Exam: normal ENT inspection Neck Exam: normal inspection, full range of motion Respiratory Exam: normal breath sounds, lungs clear Cardiovascular Exam: regular rate/rhythm, normal heart sounds Gastrointestinal/Abdomen Exam: soft, normal bowel sounds, No tenderness, No distention Back Exam: normal inspection, normal range of motion Extremity Exam: normal inspection, normal range of motion, pelvis stable Neurologic Exam: alert, oriented x 3, cooperative, 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 Skin Exam: normal color SpO2 Interpretation: normal SpO2: 99 O2 Delivery: Room Air Ordered Tests: Active Orders 24 hr Category Date Time Status IV Insertion STAT Care 11/09/23 21:02 Active ABDOMEN AND PELVIS W/0 CONTRAS [CT] Stat Exams 11/09/23 21:46 Taken CBC W DIFF Stat Lab 11/09/23 21:15 Completed CMP Stat Lab 11/09/23 21:15 Completed LIPASE Stat Lab 11/09/23 21:15 Completed UA W/RFX UR CULTURE Stat Lab 11/09/23 21:02 Ordered Medication Summary Generic Name Dose Route Start Last Admin Trade Name Freq PRN Reason Stop Dose Admin Ciprofloxacin 250 mg 11/10/23 10:00 Ciprofloxacin 500 Mg Tablet PO 12/10/23 09:59 BID OVIDIO Sodium Chloride 1,000 mls @ 125 mls/hr 11/09/23 21:15 11/09/23 21:20 Sodium Chloride 0.9% 1000 Ml IV 12/09/23 21:14 125 mls/hr .Q8H OVIDIO Administration Discontinued Medications Generic Name Dose Route Start Last Admin Trade Name Freq PRN Reason Stop Dose Admin Metronidazole 500 mg 11/09/23 23:20 Metronidazole 500 Mg Tablet PO 11/09/23 23:21 STAT ONE Lab/Rad Data: Laboratory Result Diagrams 11/09/23 21:15 11/09/23 21:15 Laboratory Results 11/09/23 11/09/23 Range/Units 21:15 21:15 WBC 8.4 (3.98-10.04) x10^3/uL RBC 4.25 (3.93-5.22) x10^6/uL Hgb 12.2 (11.2-15.7) g/dL Hct 37.8 (34.1-44.9) % MCV 88.9 (79.4-94.8) fL MCH 28.7 (25.6-32.2) pg MCHC 32.3 (32.2-35.5) g/dL RDW 13.2 (11.7-14.4) % Plt Count 213 (182-369) x10^3/uL MPV 9.1 L (9.4-12.3) fL Gran % 62.5 (34.0-71.1) % Immature Gran % (Auto) 0.4 (0.001-0.429) % Nucleat RBC Rel Count 0.0 (0.00-0.2) % Eos # (Auto) 0.29 (0.04-0.36) x10^3/uL Immature Gran # (Auto) 0.03 (0.001-0.031) x10^3u/L Absolute Lymphs (auto) 2.00 (1.18-3.74) x10^3/uL Absolute Monos (auto) 0.76 (0.24-0.86) x10^3/uL Absolute Nucleated RBC 0.00 (0.00-0.012) x10^3u/L Lymphocytes % 23.9 (19.3-51.7) % Monocytes % 9.1 (4.7-12.5) % Eosinophils % 3.5 (0.7-5.8) % Basophils % 0.6 (0.1-1.2) % Absolute Granulocytes 5.23 (1.56-6.13) x10^3/uL Basophils # 0.05 (0.01-0.08) x10^3/uL Sodium 139 (135-145) mmol/L Potassium 3.4 L (3.5-5.1) mmol/L Chloride 109 H (98-107) mmol/L Carbon Dioxide 19 L (22-30) mmol/L Anion Gap 14.1 (5-15) MEQ/L BUN 17 (7-17) mg/dL Creatinine 1.39 H (0.52-1.04) mg/dL Estimated GFR 40.3 ML/MIN Glucose 135 H (74-106) mg/dL Calcium 9.1 (8.4-10.2) mg/dL Total Bilirubin 0.50 (0.2-1.3) mg/dL AST 23 (14-36) U/L ALT 12 (0-35) U/L Alkaline Phosphatase 59 (38-126) U/L Serum Total Protein 6.9 (6.3-8.2) g/dL Albumin 3.9 (3.5-5.0) g/dL Lipase 98 (23-300) U/L - Progress Progress: unchanged Progress Note: 11/09/23 23:26 73-year-old is evaluated in the ER for possible constipation and loose stool. Patient does not have fever or chills. No abdominal tenderness. She is given gentle hydration, workup showed normal white count, stable renal functions with CKD, no UTI. CT abdomen pelvis did not show constipation but diarrheal disease with rectal circumferential thickening suggesting malignancy versus proctitis. Patient has no history of weight loss. I will give her a trial of Cipro and Flagyl as I believe it would be probably infectious etiology. I have ordered C. difficile but patient could not provide a stool sample. She has no history of C. difficile in the past. Recommended outpatient follow-up with primary care and general surgery for reevaluation and colonoscopy. Discussed signs symptoms of worsening needing return to ER which patient/daughter seem understanding. Stable for discharge. Counseled pt/family regarding: lab results, diagnosis, need for follow-up, rad results Medical Desision Making - Independent Historian Additional History obtained from: Child - Diagnostic Testing Diagnostic test were ordered, analyzed, and reviewed by me: Yes Radiological Interpretation: Reviewed by me, Teleradiologist Report - Risk of complications The pt has a mod risk of morbidity or mortality based on: Need for prescription drug management - Departure Departure Disposition: Home Clinical Impression: Acute proctitis Condition: Stable Critical Care Time: No Referrals: ASIYA SIMON [Primary Care Provider] - Follow up with PCP 1 day JACI RICHARDS [ACTIVE STAFF] - Follow up/PCP as directed (Call for appointment for colonoscopy) Instructions: Proctitis Additional Instructions: Take Tylenol as needed. Do not take ibuprofen Aleve or any other NSAIDs. Follow-up with primary care/GI for further evaluation with colonoscopy. Return to ER for abdominal pain/diarrhea/fever chills etc. Prescriptions: Ciprofloxacin HCl [Cipro] 250 mg PO BID 7 Days #14 tablet Metronidazole 500 mg [Flagyl 500 MG] 500 mg PO TID 7 Days #21 tablet
[2023-11-09] MEDS ORDERED: Cipro 500 MG ONE (23:46)
[2023-11-09] MEDS ORDERED: Flagyl 500 MG ONE (23:46)
[2023-11-09] MEDS: Cipro 500 MG PO SCH (23:50)
[2023-11-09] MEDS: Flagyl 500 MG PO ONE (23:50)
[2023-11-09 23:56] VITALS: BP 130/77; PULSE 65
--- NOTE | 2023-11-10 07:35 | XRAY ---
Indication: Constipation. Obstruction. Bloating. Multiple contiguous axial images obtained through abdomen and pelvis without contrast. Comparison: April 27, 2021 Lung bases remain clear. Heart not enlarged. Stomach is distended with food/fluid. Noncontrasted stomach and bowel loops appear nonobstructed. New mild diffuse colonic diarrhea. Rectum now demonstrates mild circumferential wall thickening either incomplete distention versus proctitis versus malignancy. Again small right renal cyst, exophytic calcified uterine fibroid, splenic calcified granulomas, and cholecystectomy. No free fluid/air. Remaining liver, pancreas, spleen, adrenal glands, kidneys, ureters, bladder, and uterus are unremarkable for noncontrast exam. There remains mild scattered aortoiliac calcifications without AAA. Osseous structures intact again with osteopenia, minimal/mild degenerative changes throughout spine, and mild degenerative changes both hips. Impression: 1. New mild rectal bowel wall thickening. Finding could be incomplete distention. Cannot completely exclude proctitis versus malignancy on this noncontrast exam. 2. New diffuse colonic diarrhea. 3. Again chronic findings including right renal cyst, calcified uterine fibroid, arteriosclerotic disease, chronic bony findings, and old granulomatous disease.
== END 2023-11-10 00:12 | disposition home or self-care (01) ==
LOC: ED 20:47
DX: K62.89 Other specified diseases of anus and rectum (principal); K59.00 Constipation, unspecified; I10 Essential (primary) hypertension; E11.9 Type 2 diabetes mellitus without complications; Z79.84 Long term (current) use of oral hypoglycemic drugs; Z79.85 Long-term (current) use of injectable non-insulin antidiabetic drugs; Z79.899 Other long term (current) drug therapy
CPT/HCPCS: 36000; 36415; 74176; 80053; 83690; 85025; 99284; A9270-GY

== ENCOUNTER 2023-12-07 08:58 | Day surgery (SDC) | payer MEDICARE, OTHER ==
--- NOTE | 2023-12-06 11:22 | HP ---
HISTORY AND PHYSICAL HISTORY OF PRESENT ILLNESS: Patient is a 73-year-old female who presents with an abnormal CAT scan of rectal thickening. She had some constipation. She went to the ED. She had some milk of magnesia that helped. While she was there, she got the CAT scan that showed some thickening in her rectum versus proctitis versus malignancy. PAST MEDICAL HISTORY: Hyperlipidemia, hypertension, diabetes, anxiety, and depression. HOME MEDICATIONS: Donezepril, Linzess, Ambien, aspirin, losartan, amlodipine, gabapentin, sertraline, atorvastatin, Mounjaro, Farxiga. ALLERGIES: None reported. PAST SURGICAL HISTORY: Cardiac cath, cholecystectomy, cardiac stent. FAMILY HISTORY: None reported. REVIEW OF SYSTEMS: CONSTITUTIONAL: Denies fever or chills. CHEST: Denies shortness of breath. CARDIAC: Denies chest pain. ABDOMEN: Reports some abdominal pain. PHYSICAL EXAMINATION: GENERAL: No acute distress. CARDIOVASCULAR: Regular rate and rhythm. RESPIRATORY: Nonlabored. No shortness of breath. ABDOMEN: Soft. ASSESSMENT: Abnormal CAT scan, rectal thickening, change in bowel habits. PLAN: Colonoscopy with Dr. Musa Trujillo. This report was dictated for Dr. Trujillo by Tameka Antonio NP.
[2023-12-07 10:00] VITALS: O2SAT 100
[2023-12-07 10:01] LABS: ANION GAP 19.1 MEQ/L (5-15); Calcium 8.9 mg/dL (8.4-10.2); Creatinine 1 1.23 mg/dL (0.52-1.04); EST GLOMERULAR FILTRATION RATE 46.7 ML/MIN; Potassium 3.1 mmol/L (3.5-5.1)
[2023-12-07] MEDS: Lactated Ringers 1,000 ML IV SCH (10:52)
[2023-12-07] MEDS ORDERED: DIPRIVAN 200 MG/20 ML IV ONE (11:21)
[2023-12-07 12:18] VITALS: PULSE 56; RESP 18; TEMP 97.1
[2023-12-07 12:32] VITALS: BP 136/68
[2023-12-08 08:22] LABS: 027 TOX PROD PRESUMPTIVE NEGATIVE (NEGATIVE)
[2023-12-08 09:05] LABS: TOXIGENIC C. DIFF ORG POSITIVE (NEGATIVE)
--- NOTE | 2023-12-08 10:46 | OP ---
SURGERY DATE/TIME: 12/07/2023 1125 - 1138 PREOPERATIVE DIAGNOSES: 1) Blood per rectum. 2) Thickened rectum per CT scan. POSTOPERATIVE DIAGNOSIS: Diffusely thickened colon, from rectum to cecum. PROCEDURE: Colonoscopy, 2 insurance healthcare representative colon biopsy of the rectum. Stool for Clostridium difficile. SURGEON: Musa Trujillo MD DESCRIPTION OF PROCEDURE AND FINDINGS: The scope was introduced. It was a gross exam, but the scope was introduced between the rectum and the cecum. Ileocecal valve was seen. Base of the cecum fairly well seen. There was still stool in several places. There was a mucosal abnormality consistent with pseudomembranes through much of the exam. She has a working diagnosis of pseudomembranous colitis, i.e. C difficile. Stool was sent for C difficile. She was started on Flagyl.
== END 2023-12-07 12:55 | disposition home or self-care (01) ==
LOC: SDC 08:58
PROVIDERS: ATTEND Surgery
DX: K52.9 Noninfective gastroenteritis and colitis, unspecified (principal); K92.1 Melena; K62.89 Other specified diseases of anus and rectum; E11.9 Type 2 diabetes mellitus without complications
CPT/HCPCS: 36415; 80048; 82947; 87045; 87046; 87177; 87209; 87328; 87329; 87427; 87493; 99100; J2704

== ENCOUNTER 2024-02-25 12:00 | Emergency (ER) | payer MEDICARE, OTHER ==
[2024-02-25 12:17] VITALS: TEMP 97.7
[2024-02-25 12:50] VITALS: RESP 16
--- NOTE | 2024-02-25 12:59 | ERPHSYRPT ---
- History of Present Illness Time Seen by Provider: 02/25/24 12:55 Source: patient Exam Limitations: no limitations Patient Subjective Stated Complaint: States he chair pulled her out of a chair and onto the ground on Monday evening. C/O left wrist pain/injury following in cident. Triage Nursing Assessment: Patient ambulated back to ER. She is alert and oriented. Palm of left hand is bruised with some small abrasions present. Left wrist is swollen. Physician History: 73 years old female presented in the ER with complains of left hand and wrist pain for 2 days. Patient reports she was sitting on a chair with dog leash who saw another dog and tried to run, pulled her down on the floor and she fell on outstretched hand. Has some abrasion on the palm and dorsum of the wrist. Patient is up-to-date with tetanus. Complaining of pain with extension of the wrist. No difficulty movements of fingers/thumb. No numbness or tingling. Pain is mild to moderate. Allergies/Adverse Reactions: Penicillins Allergy (Mild, Verified 02/25/24 12:07) Home Medications: Gabapentin [Neurontin] 300 mg PO HS 07/06/21 [History] Tirzepatide [Mounjaro] 5 mg SQ WEEKLY 11/09/23 [History] Atorvastatin Calcium 40 mg PO UD 12/06/23 [History] Esomeprazole Magnesium 40 mg PO DAILY 01/11/24 [History] Ferrous Sulfate 325 mg [Feosol 325 mg] 1 tab PO DAILY 01/11/24 [History] Aspirin [Adult Low Dose Aspirin EC] 81 mg PO DAILY 02/06/24 [History] Docusate Sodium [Colace] 100 mg PO DAILY 02/06/24 [History] Hx Tetanus, Diphtheria Vaccination/Date Given: Yes Hx Influenza Vaccination/Date Given: Yes Hx Pneumococcal Vaccination/Date Given: Yes Immunizations Up to Date: Yes Travel Risk - International Travel Have you traveled outside of the country in past 3 weeks: No - Emerging Infectious Disease Are you exhibiting symptoms associated with any current EIDs: No - Review of Systems Constitutional: No Symptoms Ears, Nose, & Throat: No Symptoms Respiratory: No Symptoms Cardiac: No Symptoms Abdominal/Gastrointestinal: No Symptoms Genitourinary Symptoms: No Symptoms Musculoskeletal: Arthralgias, Fall, Injury, Joint Pain, Joint Swelling Skin: Skin Lesions Endocrine: No Symptoms - Past Medical History Pertinent Past Medical History: Yes Neurological History: Dementia ENT History: Cataracts Cardiac History: High Cholesterol, Hypertension, Other Respiratory History: Asthma Endocrine Medical History: Diabetes Type II Musculoskeletal History: Fractures GI Medical History: No Pertinent History History: Renal Disease Psycho-Social History: Depression Female Reproductive Disorders: No Pertinent History Other Medical History: stints in the heart - Past Surgical History Past Surgical History: Yes Neuro Surgical History: No Pertinent History Cardiac: Cardiac Catheterization, Cardiac Stent Respiratory: No Pertinent History Gastrointestinal: Cholecystectomy Genitourinary: No Pertinent History Musculoskeletal: No Pertinent History Female Surgical History: No Pertinent History Other Surgical History: carpal tunnel. lt ankle surgery, tim in left leg Significant Family History: no pertinent family hx - Social History Smoking Status: Never smoker Exposure to second hand smoke: No Drug Use: none Patient Lives Alone: No - Social Determinants of Health Will the patient participate in the screening: Yes Do you worry about a steady place to live?: No Do you have any problems with any of the following?: No known problems In the past 12 months,have you had to go without utilities?: No Transportation Issues: No Has anyone in your support network made you feel unsafe?: No Have you or anyone in your house had to go without enough: No - Nursing Vital Signs Nursing Vital Signs: Initial Vital Signs Temperature 97.7 F 02/25/24 12:05 Pulse Rate 62 02/25/24 12:05 Respiratory Rate 18 02/25/24 12:05 Blood Pressure 170/96 02/25/24 12:05 O2 Sat by Pulse Oximetry 100 02/25/24 12:05 Pain Scale Pain Intensity 2 - Physical Exam General Appearance: no apparent distress, alert Neck Exam: normal inspection, full range of motion Cardiovascular/Respiratory Exam: normal breath sounds, regular rate/rhythm Elbow/Forearm Exam: normal inspection, non-tender, no evidence of injury, normal ROM Wrist Exam: limited ROM (Abrasion on the thenar eminence left hand and on dorsal wrist. Tenderness wrist dorsal aspect. Intact range of motion. No anatomical snuffbox tenderness.), soft tissue tenderness Neuro/Tendon Exam: normal sensation, normal motor functions, normal tendon functions Mental Status Exam: alert, oriented x 3, cooperative Skin Exam: normal color SpO2 Interpretation: normal SpO2: 100 O2 Delivery: Room Air Procedures - Splinting Location of Splint: Left, Wrist Type of Splint: Velcro Splint Ordered Tests: Active Orders 24 hr Category Date Time Status HAND (MINIMUM 3 VIEWS) Stat Exams 02/25/24 12:09 Taken WRIST (MIN 3 VIEWS) Stat Exams 02/25/24 12:08 Taken - Progress Progress: unchanged Progress Note: 02/25/24 12:55 73 years old is evaluated in the ER for wrist pain after she fell off of a chair when dog pulled his leash which she was holding and she tried to stop herself with outstretched hand hitting the ground. Patient has some abrasions. Complaining of dull aching to sharp pain and some restriction range of wrist extension. I have offered her pain medication which she declined. X-rays wrist and hand are negative for fracture dislocation reviewed by me. I believe patient's pain is either secondary to contusion versus wrist sprain, placed in premade wrist splint and outpatient follow-up recommended. Recommended Tylenol and ice application. Discussed signs symptoms of worsening needing return to ER which she seems understanding. Counseled pt/family regarding: diagnosis, need for follow-up, rad results Medical Desision Making - Diagnostic Testing Diagnostic test were ordered, analyzed, and reviewed by me: Yes Radiological Interpretation: Interpreted by me, Reviewed by me - Departure Departure Disposition: Home Clinical Impression: Left wrist sprain, Contusion Condition: Stable Critical Care Time: No Referrals: ADE WANG DO [Primary Care Provider] - Follow up with PCP 1 day SAURABH DUNBAR NP [NON-STAFF PHY W/O PRIVILEGES] - Follow up/PCP as directed (call for re evaaluation appointment ) Instructions: Common Wrist Injuries ED, Minor Contusion ED Additional Instructions: take tylenol as needed. follow up with PCP /Ortho for reevaluation, return for worsenin pain/swelling or difficulty movements
[2024-02-25 13:05] VITALS: BP 155/101; PULSE 64
[2024-02-25 13:24] VITALS: O2SAT 100
--- NOTE | 2024-02-25 22:00 | XRAY ---
Indication: Pain and swelling following fall. Comparison: None 3 view left wrist demonstrates osteopenia, radiocarpal joint space narrowing, ulnar carpal degenerative chondrocalcinosis, and mild 1st metacarpal multangular degenerative changes. No other bony, articular, or soft tissue abnormalities.
--- NOTE | 2024-02-25 22:00 | XRAY ---
Indication: Pain and swelling following fall. Comparison: None 3 view left hand demonstrates osteopenia, mild degenerative changes all IP joints, mild 1st metacarpal multangular degenerative changes, radiocarpal joint space narrowing, and ulnar carpal degenerative chondrocalcinosis. No other bony, articular, or soft tissue abnormalities.
== END 2024-02-25 13:05 | disposition home or self-care (01) ==
LOC: ED 12:00
DX: S63.502A Unspecified sprain of left wrist, initial encounter (principal); S60.212A Contusion of left wrist, initial encounter; W07.XXXA Fall from chair, initial encounter; E78.5 Hyperlipidemia, unspecified; I10 Essential (primary) hypertension; E11.9 Type 2 diabetes mellitus without complications; Z79.85 Long-term (current) use of injectable non-insulin antidiabetic drugs; Z79.899 Other long term (current) drug therapy
CPT/HCPCS: 73110; 73130; 99283; L3908

== ENCOUNTER 2024-03-10 18:34 | Observation (INO) | payer MEDICARE, OTHER ==
--- NOTE | 2024-03-10 19:16 | ERPHSYRPT ---
- History of Present Illness Time Seen by Provider: 03/10/24 19:16 Historian: patient Exam Limitations: no limitations Patient Subjective Stated Complaint: Diarrhea Triage Nursing Assessment: Patient ambulated back to ED and transferred self to bed. Patient A+O X3. Patient's skin pink, warm and dry. Patient complains of diarrhea for the past two weeks along with nausea. Patient states she doesn't feel like eating. Patient denies pain or discomfort, but states her abdomen "feels tight". Patient was recently started on Ozempic two weeks ago. Abdomen soft and round with BS X 4. Physician History: The patient presents with ongoing gastrointestinal symptoms, primarily characterized by frequent, liquid, and sometimes greenish diarrhea. She reports an urgency to defecate, occasionally resulting in accidents, and a sensation of abdominal tightness. The patient also notes a significant decrease in appetite, often going days without eating. These symptoms have been ongoing for an extended period, predating the initiation of Ozempic for diabetes management a week ago. 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 Despite the negative results, the patient completed a course of antibiotics. The patient's bowel movements have been consistently liquid for a long time, and she has not taken any medication for diarrhea recently. The patient also reports decreased frequency of urination, but denies any pain or blood in the urine. She denies any chest pain, trouble breathing, or swelling. She also denies any fevers or belly pain, other than the aforementioned tightness. The patient's symptoms have led to a significant impact on her daily life and have caused distress. Timing/Duration: week(s) (2) Activities at Onset: rest Quality: fullness Abdominal Pain Onset Location: generalized abdomen Pain Radiation: no radiation Severity of Pain-Max: mild Severity of Pain-Current: mild Modifying Factors: Improves With: nothing. Worsens With: defecating Associated Symptoms: diarrhea, fatigue, loss of appetite, nausea, weakness, No back, No chest pain, No diaphoresis, No fever/chills, No headache, No heartburn, No neck pain, No rash, No syncope, No vomiting Previous symptoms: same symptoms as today Allergies/Adverse Reactions: Penicillins Allergy (Mild, Verified 03/10/24 18:52) Home Medications: Gabapentin [Neurontin] 300 mg PO HS 07/06/21 [History] Atorvastatin Calcium 40 mg PO DAILY 12/06/23 [History] Ferrous Sulfate 325 mg [Feosol 325 mg] 1 tab PO DAILY 01/11/24 [History] Aspirin [Adult Low Dose Aspirin EC] 81 mg PO UD 02/06/24 [History] Dapagliflozin Propanediol [Farxiga] 1 tab PO DAILY 03/10/24 [History] Hx Tetanus, Diphtheria Vaccination/Date Given: Yes Hx Influenza Vaccination/Date Given: Yes Hx Pneumococcal Vaccination/Date Given: Yes Immunizations Up to Date: Yes Travel Risk - International Travel Have you traveled outside of the country in past 3 weeks: No - Emerging Infectious Disease Are you exhibiting symptoms associated with any current EIDs: No - Review of Systems All Other Systems: Reviewed and Negative - Past Medical History Pertinent Past Medical History: Yes Neurological History: Dementia ENT History: Cataracts Cardiac History: High Cholesterol, Hypertension, Other Respiratory History: Asthma Endocrine Medical History: Diabetes Type II Musculoskeletal History: Fractures GI Medical History: No Pertinent History History: Renal Disease Psycho-Social History: Depression Female Reproductive Disorders: No Pertinent History Other Medical History: stints in the heart - Past Surgical History Past Surgical History: Yes Neuro Surgical History: No Pertinent History Cardiac: Cardiac Catheterization, Cardiac Stent Respiratory: No Pertinent History Gastrointestinal: Cholecystectomy Genitourinary: No Pertinent History Musculoskeletal: No Pertinent History Female Surgical History: No Pertinent History Other Surgical History: carpal tunnel. lt ankle surgery, tim in left leg Significant Family History: no pertinent family hx - Social History Smoking Status: Never smoker Exposure to second hand smoke: No Drug Use: none Patient Lives Alone: No - Social Determinants of Health Will the patient participate in the screening: Yes Do you worry about a steady place to live?: No Do you have any problems with any of the following?: No known problems In the past 12 months,have you had to go without utilities?: No Transportation Issues: No Has anyone in your support network made you feel unsafe?: No Have you or anyone in your house had to go without enough: No - Nursing Vital Signs Nursing Vital Signs: Initial Vital Signs Temperature 98.7 F 03/10/24 18:58 Pulse Rate 80 03/10/24 18:58 Respiratory Rate 20 03/10/24 18:58 Blood Pressure 118/73 03/10/24 18:58 O2 Sat by Pulse Oximetry 98 03/10/24 18:58 Pain Scale Pain Intensity 0 - Physical Exam General Appearance: no apparent distress, thin Eye Exam: pale conjunctivae Ears, Nose, Throat Exam: normal ENT inspection Neck Exam: normal inspection, supple, full range of motion Respiratory Exam: airway intact, No respiratory distress Cardiovascular Exam: regular rate/rhythm, capillary refill <2 sec Gastrointestinal/Abdomen Exam: soft, normal bowel sounds, No tenderness, No distention, No mass, No guarding, No rebound Extremity Exam: No swelling, No tenderness Neurologic Exam: alert, oriented x 3, cooperative Skin Exam: warm, dry, pale SpO2 Interpretation: normal SpO2: 98 O2 Delivery: Room Air - CT Exams Abdomen/Pelvis CT Interpretation: Tele-radiologist Report, Other (colonic thickening, right adnexal mass, right renal cyst, breast nodule) Ordered Tests: Active Orders 24 hr Category Date Time Status Call Admit Doctor for Orders ON ADMISSION Care 03/10/24 22:39 Active Code Status Order ROUTINE Care 03/10/24 22:39 Active IV Insertion STAT Care 03/10/24 19:[address] in Observation ROUTINE Care 03/10/24 22:39 Active Telemetry q4h Care 03/10/24 20:53 Completed Telemetry q6h Care 03/10/24 22:39 Active NPO Diet 03/10/24 22:39 Active ABDOMEN AND PELVIS W/0 CONTRAS [CT] Stat Exams 03/10/24 19:28 Completed BLOOD CULTURE Stat Lab 03/10/24 20:24 Received CBC W DIFF Stat Lab 03/10/24 19:45 Results CMP Stat Lab 03/10/24 19:45 Completed Erythrocyte Sedimentation Rate Stat Lab 03/10/24 19:45 Completed LIPASE Stat Lab 03/10/24 19:45 Completed Lactic Acid Stat Lab 03/10/24 19:45 Completed MAGNESIUM Stat Lab 03/10/24 20:27 Completed Manual Differential NC Stat Lab 03/10/24 19:45 Results OB-FECAL SCREEN Stat Lab 03/10/24 Ordered Pathologist Review Stat Lab 03/10/24 19:45 Results TROPONIN Q4H Lab 03/10/24 19:45 Completed TROPONIN Q4H Lab 03/10/24 23:30 Ordered TSH, 3RD Generation Stat Lab 03/10/24 19:45 Completed UA W/RFX UR CULTURE Stat Lab 03/10/24 19:30 Completed Transfer Order Routine Transfer 03/10/24 Completed Medication Summary Generic Name Dose Route Start Last Admin Trade Name Alonso PRN Reason Stop Dose Admin Potassium Chloride 20 meq in 100 mls @ 50 mls/hr 03/10/24 21:00 Potassium Chloride 20 Meq In Water 100ml IV 03/11/24 00:59 Q2H OVIDIO Discontinued Medications Generic Name Dose Route Start Last Admin Trade Name Alonso PRN Reason Stop Dose Admin Calcium Chloride 1,000 mg 03/10/24 20:53 Calcium Chloride 100 Mg/Ml 10ml Inj. IV 03/10/24 20:54 STAT ONE Calcium Chloride Confirm 03/10/24 21:24 Calcium Chloride 100 Mg/Ml 10ml Inj. Administered 03/10/24 21:25 Dose 1,000 mg .ROUTE .STK-MED ONE Methylprednisolone Sodium 0 mg 03/10/24 20:58 03/10/24 21:29 Succinate 125 mg/ Sterile IV 03/10/24 20:59 125 mg Water 2 ml STAT ONE Administration Sodium Chloride 1,000 mls @ 999 mls/hr 03/10/24 19:26 03/10/24 21:04 Sodium Chloride 0.9% 1000 Ml IV 03/10/24 20:26 Infused .Q1H1M STA Infusion Sodium Chloride Confirm 03/10/24 19:46 Sodium Chloride 0.9% 1000 Ml Administered 03/10/24 19:47 Dose 1,000 mls @ ud .ROUTE .STK-MED ONE Ceftriaxone Sodium 1 gm in 100 mls @ 200 mls/hr 03/10/24 20:11 03/10/24 21:01 Rocephin 1 Gm / 100 Ml Nacl IV 03/10/24 20:40 Infused STAT ONE Infusion Metronidazole 500 mg in 100 mls @ 200 mls/hr 03/10/24 20:12 03/10/24 22:10 Flagyl 500 Mg Ivpb IV 03/10/24 20:41 Infused STAT STA Infusion Ceftriaxone Sodium Confirm 03/10/24 20:17 Rocephin 1 Gm / 100 Ml Nacl Administered 03/10/24 20:18 Dose 1 gm in 100 mls @ ud IV .STK-MED ONE Metronidazole Confirm 03/10/24 20:59 Flagyl 500 Mg Ivpb Administered 03/10/24 21:00 Dose 500 mg in 100 mls @ ud IV .STK-MED ONE Calcium Gluconate 1,000 mg/ 110 mls @ 220 mls/hr 03/10/24 21:12 Sodium Chloride IV 03/10/24 21:41 ONCE ONE Calcium Chloride 1,000 mg/ 110 mls @ 220 mls/hr 03/10/24 21:21 03/10/24 22:17 Sodium Chloride IV 03/10/24 21:50 220 mls/hr ONCE ONE Administration Sodium Chloride Confirm 03/10/24 21:24 Sodium Chloride 0.9% Administered 03/10/24 21:25 Dose 100 mls @ ud .ROUTE .STK-MED ONE Loperamide HCl 2 mg 03/10/24 19:26 03/10/24 20:01 Loperamide Hcl 2 Mg Capsule PO 03/10/24 19:27 2 mg STAT ONE Administration Methylprednisolone Sodium Succinate Confirm 03/10/24 21:24 Methylprednis Sod Succ 125 Mg/2 Ml Vial Administered 03/10/24 21:25 Dose 125 mg .ROUTE .STK-MED ONE Sterile Water Confirm 03/10/24 21:23 Water For Injection,Sterile 10 Ml Vial Administered 03/10/24 21:24 Dose 10 ml IJ .STK-MED ONE Vancomycin HCl 250 mg 03/10/24 20:12 03/10/24 20:24 Vancomycin Hcl 125 Mg Capsule PO 03/10/24 20:13 250 mg ONCE ONE Administration Lab/Rad Data: Laboratory Result Diagrams 03/10/24 19:45 03/10/24 19:45 Laboratory Results 03/10/24 03/10/24 03/10/24 Range/Units 20:27 19:45 19:45 WBC (3.98-10.04) x10^3/uL RBC (3.93-5.22) x10^6/uL Hgb (11.2-15.7) g/dL Hct (34.1-44.9) % MCV (79.4-94.8) fL MCH (25.6-32.2) pg MCHC (32.2-35.5) g/dL RDW (11.7-14.4) % Plt Count (182-369) x10^3/uL MPV (9.4-12.3) fL Segmented Neutrophils (34.0-71.1) % Lymphocytes (Manual) (19.3-51.7) % Monocytes (Manual) (4.7-12.5) % Platelet Estimate (NORMAL) RBC Morphology Smear Path Review ESR (0-20) mm/hr Sodium (135-145) mmol/L Potassium (3.5-5.1) mmol/L Chloride (98-107) mmol/L Carbon Dioxide (22-30) mmol/L Anion Gap (5-15) MEQ/L BUN (7-17) mg/dL Creatinine (0.52-1.04) mg/dL Estimated GFR ML/MIN Glucose (74-106) mg/dL Lactic Acid (0.4-2.0) Calcium (8.4-10.2) mg/dL Magnesium 2.4 H (1.6-2.3) mg/dL Total Bilirubin (0.2-1.3) mg/dL AST (14-36) U/L ALT (0-35) U/L Alkaline Phosphatase (38-126) U/L Troponin I (0.000-0.033) ng/mL Serum Total Protein (6.3-8.2) g/dL Albumin (3.5-5.0) g/dL Lipase (23-300) U/L Free T4 1.72 (0.78-2.19) ng/dL TSH 3rd Generation (0.470-4.680) mIU/L Urine Color (Yellow) Urine Appearance (Clear) Urine pH (4.6-8.0) Ur Specific Barnett (1.005-1.030) Urine Protein (Negative) Urine Glucose (UA) (Negative) mg/dL Urine Ketones (Negative) Urine Blood (Negative) Urine Nitrite (Negative) Urine Bilirubin (Negative) Urine Urobilinogen (0.2) mg/dL Ur Leukocyte Esterase (Negative) U Hyaline Cast (Auto) (0-2) /LPF Urine Microscopic RBC (0-5) /HPF Urine Microscopic WBC (0-5) /HPF Ur Epithelial Cells (None Seen) /HPF Urine Bacteria (None Seen) /HPF Urine Culture Reflexed (NO) Influenza Type A Ag NEGATIVE (NEGATIVE) Influenza Type B Ag NEGATIVE (NEGATIVE) RSV (PCR) NEGATIVE (NEGATIVE) SARS-CoV-2 (PCR) NEGATIVE (NEGATIVE) 03/10/24 03/10/24 03/10/24 Range/Units 19:45 19:45 19:45 WBC (3.98-10.04) x10^3/uL RBC (3.93-5.22) x10^6/uL Hgb (11.2-15.7) g/dL Hct (34.1-44.9) % MCV (79.4-94.8) fL MCH (25.6-32.2) pg MCHC (32.2-35.5) g/dL RDW (11.7-14.4) % Plt Count (182-369) x10^3/uL MPV (9.4-12.3) fL Segmented Neutrophils (34.0-71.1) % Lymphocytes (Manual) (19.3-51.7) % Monocytes (Manual) (4.7-12.5) % Platelet Estimate (NORMAL) RBC Morphology Smear Path Review ESR 43 H (0-20) mm/hr Sodium (135-145) mmol/L Potassium (3.5-5.1) mmol/L Chloride (98-107) mmol/L Carbon Dioxide (22-30) mmol/L Anion Gap (5-15) MEQ/L BUN (7-17) mg/dL Creatinine (0.52-1.04) mg/dL Estimated GFR ML/MIN Glucose (74-106) mg/dL Lactic Acid (0.4-2.0) Calcium (8.4-10.2) mg/dL Magnesium (1.6-2.3) mg/dL Total Bilirubin (0.2-1.3) mg/dL AST (14-36) U/L ALT (0-35) U/L Alkaline Phosphatase (38-126) U/L Troponin I < 0.012 (0.000-0.033) ng/mL Serum Total Protein (6.3-8.2) g/dL Albumin (3.5-5.0) g/dL Lipase (23-300) U/L Free T4 (0.78-2.19) ng/dL TSH 3rd Generation 0.808 (0.470-4.680) mIU/L Urine Color (Yellow) Urine Appearance (Clear) Urine pH (4.6-8.0) Ur Specific Barnett (1.005-1.030) Urine Protein (Negative) Urine Glucose (UA) (Negative) mg/dL Urine Ketones (Negative) Urine Blood (Negative) Urine Nitrite (Negative) Urine Bilirubin (Negative) Urine Urobilinogen (0.2) mg/dL Ur Leukocyte Esterase (Negative) U Hyaline Cast (Auto) (0-2) /LPF Urine Microscopic RBC (0-5) /HPF Urine Microscopic WBC (0-5) /HPF Ur Epithelial Cells (None Seen) /HPF Urine Bacteria (None Seen) /HPF Urine Culture Reflexed (NO) Influenza Type A Ag (NEGATIVE) Influenza Type B Ag (NEGATIVE) RSV (PCR) (NEGATIVE) SARS-CoV-2 (PCR) (NEGATIVE) 03/10/24 03/10/24 03/10/24 Range/Units 19:45 19:45 19:45 WBC 33.0 H* (3.98-10.04) x10^3/uL RBC 4.20 (3.93-5.22) x10^6/uL Hgb 12.2 (11.2-15.7) g/dL Hct 36.6 (34.1-44.9) % MCV 87.1 (79.4-94.8) fL MCH 29.0 (25.6-32.2) pg MCHC 33.3 (32.2-35.5) g/dL RDW 13.3 (11.7-14.4) % Plt Count 277 (182-369) x10^3/uL MPV 8.7 L (9.4-12.3) fL Segmented Neutrophils 94 H (34.0-71.1) % Lymphocytes (Manual) 2 L (19.3-51.7) % Monocytes (Manual) 4 L (4.7-12.5) % Platelet Estimate NORMAL (NORMAL) RBC Morphology NORMAL Smear Path Review Pending ESR (0-20) mm/hr Sodium 131 L (135-145) mmol/L Potassium 2.9 L* (3.5-5.1) mmol/L Chloride 101 (98-107) mmol/L Carbon Dioxide 20 L (22-30) mmol/L Anion Gap 12.7 (5-15) MEQ/L BUN 26 H (7-17) mg/dL Creatinine 1.28 H (0.52-1.04) mg/dL Estimated GFR 44.5 ML/MIN Glucose 220 H (74-106) mg/dL Lactic Acid 1.3 (0.4-2.0) Calcium 6.9 L (8.4-10.2) mg/dL Magnesium (1.6-2.3) mg/dL Total Bilirubin 0.60 (0.2-1.3) mg/dL AST 15 (14-36) U/L ALT 9 (0-35) U/L Alkaline Phosphatase 92 (38-126) U/L Troponin I (0.000-0.033) ng/mL Serum Total Protein 6.0 L (6.3-8.2) g/dL Albumin 2.9 L (3.5-5.0) g/dL Lipase 41 (23-300) U/L Free T4 (0.78-2.19) ng/dL TSH 3rd Generation (0.470-4.680) mIU/L Urine Color (Yellow) Urine Appearance (Clear) Urine pH (4.6-8.0) Ur Specific Barnett (1.005-1.030) Urine Protein (Negative) Urine Glucose (UA) (Negative) mg/dL Urine Ketones (Negative) Urine Blood (Negative) Urine Nitrite (Negative) Urine Bilirubin (Negative) Urine Urobilinogen (0.2) mg/dL Ur Leukocyte Esterase (Negative) U Hyaline Cast (Auto) (0-2) /LPF Urine Microscopic RBC (0-5) /HPF Urine Microscopic WBC (0-5) /HPF Ur Epithelial Cells (None Seen) /HPF Urine Bacteria (None Seen) /HPF Urine Culture Reflexed (NO) Influenza Type A Ag (NEGATIVE) Influenza Type B Ag (NEGATIVE) RSV (PCR) (NEGATIVE) SARS-CoV-2 (PCR) (NEGATIVE) 03/10/24 Range/Units 19:30 WBC (3.98-10.04) x10^3/uL RBC (3.93-5.22) x10^6/uL Hgb (11.2-15.7) g/dL Hct (34.1-44.9) % MCV (79.4-94.8) fL MCH (25.6-32.2) pg MCHC (32.2-35.5) g/dL RDW (11.7-14.4) % Plt Count (182-369) x10^3/uL MPV (9.4-12.3) fL Segmented Neutrophils (34.0-71.1) % Lymphocytes (Manual) (19.3-51.7) % Monocytes (Manual) (4.7-12.5) % Platelet Estimate (NORMAL) RBC Morphology Smear Path Review ESR (0-20) mm/hr Sodium (135-145) mmol/L Potassium (3.5-5.1) mmol/L Chloride (98-107) mmol/L Carbon Dioxide (22-30) mmol/L Anion Gap (5-15) MEQ/L BUN (7-17) mg/dL Creatinine (0.52-1.04) mg/dL Estimated GFR ML/MIN Glucose (74-106) mg/dL Lactic Acid (0.4-2.0) Calcium (8.4-10.2) mg/dL Magnesium (1.6-2.3) mg/dL Total Bilirubin (0.2-1.3) mg/dL AST (14-36) U/L ALT (0-35) U/L Alkaline Phosphatase (38-126) U/L Troponin I (0.000-0.033) ng/mL Serum Total Protein (6.3-8.2) g/dL Albumin (3.5-5.0) g/dL Lipase (23-300) U/L Free T4 (0.78-2.19) ng/dL TSH 3rd Generation (0.470-4.680) mIU/L Urine Color Yellow (Yellow) Urine Appearance Clear (Clear) Urine pH 6.0 (4.6-8.0) Ur Specific Barnett >=1.030 A (1.005-1.030) Urine Protein Trace A (Negative) Urine Glucose (UA) >=1000 A (Negative) mg/dL Urine Ketones Trace A (Negative) Urine Blood Negative (Negative) Urine Nitrite Negative (Negative) Urine Bilirubin Negative (Negative) Urine Urobilinogen 0.2 (0.2) mg/dL Ur Leukocyte Esterase Negative (Negative) U Hyaline Cast (Auto) NONE SEEN (0-2) /LPF Urine Microscopic RBC 3-5 (0-5) /HPF Urine Microscopic WBC 3-5 (0-5) /HPF Ur Epithelial Cells Rare (None Seen) /HPF Urine Bacteria None Seen (None Seen) /HPF Urine Culture Reflexed NO (NO) Influenza Type A Ag (NEGATIVE) Influenza Type B Ag (NEGATIVE) RSV (PCR) (NEGATIVE) SARS-CoV-2 (PCR) (NEGATIVE) - Progress Progress: improved Progress Note: Chronic Diarrhea Longstanding diarrhea, now with increased frequency and urgency. No blood or mucus. Recent colonoscopy in November 2023 was unremarkable. No recent medications for diarrhea. -Collect stool sample for analysis. -Administer medication for diarrhea. -Order comprehensive panel of labs, including tests for anemia. -Treated for C. diff in November. -1L NS bolus for dehydration. Anorexia Patient has been experiencing decreased appetite, even prior to starting Ozempic for diabetes a week ago. -Discontinue Ozempic due to patient's preference and possible exacerbation of anorexia. -Monitor patient's eating habits and consider nutritional support if necessary. Labs - WBC 33, blood cx obtained, Na 131, K 2.9, 40meq KCl given, Ca 6.9, Calcium chloride given, Cr 1.28 at baseline, UA >1000 glucose with trace ketones, stool studies obtained, ESR 43. Started on Rocephin, Flagyl and PO Vanc. SoluMedrol 125mg given for possible IBD. Patient needs admission for electrolyte repletion, abx, IVF. Patient will likely need evaluation with colonoscopy once sxs improved. Dr. Hudson accepts for observation at 2111. Discussed with : Other (Becca) Will see patient in: hospital (observation) Counseled pt/family regarding: lab results, diagnosis, need for follow-up, rad results Medical Desision Making - Diagnostic Testing Diagnostic test were ordered, analyzed, and reviewed by me: Yes Radiological Interpretation: Interpreted by me, Reviewed by me, Teleradiologist Report - Risk of complications The pt has a mod risk of morbidity or mortality based on: Need for prescription drug management - Departure Departure Disposition: Observation Clinical Impression: Colitis, Leukocytosis, Hypokalemia, Hypocalcemia, CKD (chronic kidney disease), Adnexal mass, Breast nodule, Renal cyst, right, Elevated erythrocyte sedimentation rate Diabetes mellitus Qualifiers: Diabetes mellitus type: type 2 Condition: Stable Critical Care Time: No
[2024-03-10] MEDS ORDERED: Sodium Chloride 0.9% 1000 ML 1,000 ML ONE ×2 (19:46→23:47)
[2024-03-10 19:49] LABS: Hematocrit 36.6 % (34.1-44.9); Hemoglobin 12.2 g/dL (11.2-15.7); Mean Cell Volume 87.1 fL (79.4-94.8); Mean Corpuscular Hgb Concent. 33.3 g/dL (32.2-35.5); Mean Platelet Volume 8.7 fL (9.4-12.3); Platelet Count 277 x10^3/uL (182-369); Red Cell Distribution Width 13.3 % (11.7-14.4)
[2024-03-10] MEDS: IMODIUM 2 MG PO ONE (20:01)
[2024-03-10] MEDS: Sodium Chloride 0.9% 1000 ML 1,000 ML IV STA (20:01)
[2024-03-10 20:03] LABS: Appearance Clear (Clear); Bacteria None Seen /HPF (None Seen); Bilirubin Negative (Negative); Blood Negative (Negative); Epithelial Cells Rare /HPF (None Seen); Glucose, Urine >=1000 mg/dL (Negative); Hyaline Casts NONE SEEN /LPF (0-2); Ketones Trace (Negative); Leukocyte Esterase Negative (Negative); Nitrite Negative (Negative); Protein,Urine Dip Trace (Negative); Specific Gravity >=1.030 (1.005-1.030); Urobilinogen 0.2 mg/dL (0.2)
[2024-03-10] MEDS ORDERED: ROCEPHIN 1 GM / 100 ML NaCl 1 GM/100 ML IVPB IV ONE (20:17)
[2024-03-10] MEDS: VANCOMYCIN HCL CAPSULE PO ONE (20:24)
[2024-03-10 20:26] LABS: INFLUENZA A NEGATIVE (NEGATIVE); INFLUENZA B NEGATIVE (NEGATIVE); RESPIRATORY SYNCTIAL VIRUS NEGATIVE (NEGATIVE); SARS-CoV-2 Xpert Express NEGATIVE (NEGATIVE)
[2024-03-10] MEDS: ROCEPHIN 1 GM / 100 ML NaCl 1 GM/100 ML IVPB IV ONE (20:26)
[2024-03-10 20:41] LABS: ALBUMIN 2.9 g/dL (3.5-5.0); ANION GAP 12.7 MEQ/L (5-15); BILIRUBIN,TOTAL 0.6 mg/dL (0.2-1.3); Calcium 6.9 mg/dL (8.4-10.2); Creatinine 1 1.28 mg/dL (0.52-1.04); EST GLOMERULAR FILTRATION RATE 44.5 ML/MIN
[2024-03-10 20:51] LABS: Potassium 2.9 mmol/L (3.5-5.1)
--- NOTE | 2024-03-10 20:57 | XRAY ---
CLINICAL HISTORY: abd pressure COMPARISON: No prior studies are available for comparison. TECHNIQUE: CT of the abdomen and pelvis was performed, with the following protocol: axial images, and reconstructed coronal and sagittal images. No intravenous contrast was administered. One of the following dose reduction techniques was utilized for this exam: Automated exposure control, adjustment of the mA and/or kV according to patient size, and use of iterative reconstruction. CTDI:3.02mGy, DLP: 149.87mGy*cm. FINDINGS: Abdomen: Liver: Normal in size, shape, and density. No focal lesions, cysts, or masses were identified. Evidence of cholecystectomy. Pancreas: Pancreatic head, body, and tail are visualized and appear normal in size and density. No pancreatic masses or calcifications were noted. Spleen: Normal in size, and shape, showing multiple parenchymatous calcific foci likely granulomatous. A 1.3 cm splenule is seen adjacent to the spleen showing calcific focus also. Kidneys and Adrenal Glands: Both kidneys are normal in size, shape, and position. Cortical thickness is within normal limits. No renal calculi or hydronephrosis. Right renal cortical cyst is seen measuring 2 cm (Bosniak type I ). Adrenal glands are unremarkable. Appendix: The appendix is normal in size without lizeth appendiceal fat stranding and without an appendicolith. No evidence of appendiceal abscess or perforation. Pelvis: Urinary Bladder: Normal in contour and wall thickness. No intraluminal lesions. Uterus: Normal in size and contour. No masses or abnormal thickening. Well defined focal lesion is seen at the right adnexal region measuring about 3.5 X 4 cm showing internal linear calcific densities. Ovaries: Not well visualized but no gross abnormalities noted. Vagina: Normal in contour and wall thickness. Cervix: No evidence of mass or abnormal thickening. Peritoneal and Retroperitoneal Structures: No free fluid or abnormal fluid collections were identified within the abdomen or pelvis. No lymphadenopathy was noted. Atheromatous calcification of the aorta & both iliac vessels. Bowel: Diffuse colonic wall thickening is seen measuring about 1.3 cm at maximum thickening with diffuse mild surrounding fat smudging. Bones and Soft Tissues: Pelvic bones and soft tissues are unremarkable. No fractures or abnormal masses were identified. Mild spondylodegenrative changes. Lower chest cuts : Right breast lower quadrant soft tissue nodule measuring 1.7 cm, likely of benign nature for sonomamographic assessment. Average cardiac size with mild pericardial thickening/effusion. IMPRESSION: 1. Diffuse colonic wall thickening with diffuse mild surrounding fat smudging. likely inflammatory for clinical correlation. 2. Right renal cortical cyst (Bosniak type I ). 3. 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 4. Right breast lower quadrant soft tissue nodule likely of benign nature for sonomamographic assessment. [facility] ER was called at [phone] at 7:49 PM INFORMATION TECHNOLOGY PROJECT MANAGER, 03/10/2024 and Jyotsna Nurse was informed regarding the presence of Important Medical Findings in the report. Electronically Signed by: Angel Koch MD. (03/10/2024 20:51:54 EDT)
[2024-03-10] MEDS ORDERED: FLAGYL 500 MG IVPB 500 MG/100 ML BAG IV ONE (20:59)
[2024-03-10] MEDS: FLAGYL 500 MG IVPB 500 MG/100 ML BAG IV STA (21:02)
[2024-03-10] MEDS ORDERED: Sterile H2O 10 ml IJ ONE (21:23)
[2024-03-10] MEDS ORDERED: CALCIUM CHLORIDE 10% 1000 MG ONE (21:24)
[2024-03-10] MEDS ORDERED: solu-MEDROL ONE (21:24)
[2024-03-10] MEDS ORDERED: Sodium Chloride 0.9% 100 ML ONE (21:24)
[2024-03-10] MEDS: solu-MEDROL 125 MG, Sterile H2O 10 ml 2 ML IV ONE (21:29)
[2024-03-10 21:36] LABS: Lymphocytes 2 % (19.3-51.7); Monocyte 4 % (4.7-12.5); Neutrophils 94 % (34.0-71.1); Total Cells Counted 100
[2024-03-10 21:37] LABS: Platelet Estimate NORMAL (NORMAL)
[2024-03-10] MEDS: CALCIUM CHLORIDE 10% 1000 MG 1,000 MG in Sodium Chloride 0.9% 100 ML IV ONE (22:17)
--- NOTE | 2024-03-10 22:35 | PCM.HP ---
History of Present Illness - Chief Complaint Chief Complaint: Diarrhea Date: 03/10/24 History of Present Illness: 73-year-old white pleasant lady with past medical history significant for diabetes mellitus type 2 on with some associated neuropathy is on gabapentin came to the ER complaining of diarrhea. She has been having diarhea for few week, got worse for last one week, she is having loose stools every other minute with out significant abd pain, Nausea/vomiting. No fever reported. 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 She has not tried any diarrhea medicine from [id number]. As far as lab results are concerned WBC 33 hemoglobin 12 platelet count 277. Sodium 131 potassium 2.9 chloride 101 bicarb 2926 creatinine 1.28 lactic acid 1.3 calcium 6.9. Magnesium 2.4 urine was clear stools were sent for all studies including C. difficile CT abdomen pelvis reviewed it was done without contrast it showed diffuse colonic wall thickening with diffuse mild surrounding fat smudging likely inflammatory for clinical correlation. Patient admitted for further care - Review of Systems All Other Systems: Reviewed and Negative Medications & Allergies Home Medications: Home Medication List Gabapentin [Neurontin] 300 mg PO HS 07/06/21 [History Confirmed 03/10/24] Atorvastatin Calcium 40 mg PO DAILY 12/06/23 [History Confirmed 03/10/24] Ferrous Sulfate 325 mg [Feosol 325 mg] 1 tab PO DAILY 01/11/24 [History Confirmed 03/10/24] Aspirin [Adult Low Dose Aspirin EC] 81 mg PO UD 02/06/24 [History Confirmed 03/10/24] Dapagliflozin Propanediol [Farxiga] 1 tab PO DAILY 03/10/24 [History Confirmed 03/10/24] Allergies/Adverse Reactions: Allergies Allergy/AdvReac Type Severity Reaction Status Date / Time Penicillins Allergy Mild Verified 03/10/24 18:52 - Past Medical History Past Medical History: Yes Neurological History: Dementia ENT History: Cataracts Cardiac History: High Cholesterol, Hypertension, Other Respiratory History: Asthma Endocrine Medical History: Diabetes Type II Musculoskelatal History: Fractures GI Medical History: No Pertinent History History: Renal Disease Pyscho-Social History: Depression Reproductive Disorders: No Pertinent History Comment: stints in the heart - Past Surgical History Past Surgical History: Yes Neuro Surgical History: No Pertinent History Cardiac History: Cardiac Catheterization, Cardiac Stent Respiratory Surgery: No Pertinent History GI Surgical History: Cholecystectomy Genitourinary Surgical Hx: No Pertinent History Musculskeletal Surgical Hx: No Pertinent History Female Surgical History: No Pertinent History Other Surgical History: carpal tunnel. lt ankle surgery, tim in left leg Significant Family History: no pertinent family hx - Social History Smoking Status: Never smoker Exposure to second hand smoke: No Alcohol: None Drug Use: none - Social Determinants of Health Will the patient participate in the screening: Yes Do you worry about a steady place to live?: No Do you have any problems with any of the following?: No known problems In the past 12 months,have you had to go without utilities?: No Have you or anyone in your house had to go without enough: No Transportation Issues: No Has anyone in your support network made you feel unsafe?: No - Physical Exam Vital Signs: Vital Signs - 24 hr Temp Pulse Resp BP BP Pulse Ox 03/10/24 22:00 80 121/70 97 03/10/24 21:30 81 117/71 99 03/10/24 21:04 98 03/10/24 21:00 78 130/63 100 03/10/24 20:30 132/69 99 03/10/24 19:30 106/66 95 03/10/24 19:00 118/73 96 03/10/24 18:58 98.7 F 80 20 118/73 98 Additional Findings: 03/10/24 22:27 HEENT Old aged, average built in no distress NECK Supple,no thyromegaly, CVS S1+S2 + 0, no murmers RESP Bilateral equal air entry without Crepts/Wheezes heard GIT Soft non tender,non distended Skin, No rah, no Bruises LEGS No Edema PSYCH Normal,mood, judgement and insight NEURO AOX3, no focal deficit Results - Labs Lab/Micro Results: Lab Results-Last 24 Hours 03/10/24 03/10/24 03/10/24 Range/Units 19:30 19:45 19:45 WBC 33.0 H* (3.98-10.04) x10^3/uL RBC 4.20 (3.93-5.22) x10^6/uL Hgb 12.2 (11.2-15.7) g/dL Hct 36.6 (34.1-44.9) % MCV 87.1 (79.4-94.8) fL MCH 29.0 (25.6-32.2) pg MCHC 33.3 (32.2-35.5) g/dL RDW 13.3 (11.7-14.4) % Plt Count 277 (182-369) x10^3/uL MPV 8.7 L (9.4-12.3) fL Segmented Neutrophils 94 H (34.0-71.1) % Lymphocytes (Manual) 2 L (19.3-51.7) % Monocytes (Manual) 4 L (4.7-12.5) % Platelet Estimate NORMAL (NORMAL) RBC Morphology NORMAL Smear Path Review Pending ESR (0-20) mm/hr Sodium (135-145) mmol/L Potassium (3.5-5.1) mmol/L Chloride (98-107) mmol/L Carbon Dioxide (22-30) mmol/L Anion Gap (5-15) MEQ/L BUN (7-17) mg/dL Creatinine (0.52-1.04) mg/dL Estimated GFR ML/MIN Glucose (74-106) mg/dL Lactic Acid 1.3 (0.4-2.0) Calcium (8.4-10.2) mg/dL Magnesium (1.6-2.3) mg/dL Total Bilirubin (0.2-1.3) mg/dL AST (14-36) U/L ALT (0-35) U/L Alkaline Phosphatase (38-126) U/L Troponin I (0.000-0.033) ng/mL Serum Total Protein (6.3-8.2) g/dL Albumin (3.5-5.0) g/dL Lipase (23-300) U/L Free T4 (0.78-2.19) ng/dL TSH 3rd Generation (0.470-4.680) mIU/L Urine Color Yellow (Yellow) Urine Appearance Clear (Clear) Urine pH 6.0 (4.6-8.0) Ur Specific Happy >=1.030 A (1.005-1.030) Urine Protein Trace A (Negative) Urine Glucose (UA) >=1000 A (Negative) mg/dL Urine Ketones Trace A (Negative) Urine Blood Negative (Negative) Urine Nitrite Negative (Negative) Urine Bilirubin Negative (Negative) Urine Urobilinogen 0.2 (0.2) mg/dL Ur Leukocyte Esterase Negative (Negative) U Hyaline Cast (Auto) NONE SEEN (0-2) /LPF Urine Microscopic RBC 3-5 (0-5) /HPF Urine Microscopic WBC 3-5 (0-5) /HPF Ur Epithelial Cells Rare (None Seen) /HPF Urine Bacteria None Seen (None Seen) /HPF Urine Culture Reflexed NO (NO) Influenza Type A Ag (NEGATIVE) Influenza Type B Ag (NEGATIVE) RSV (PCR) (NEGATIVE) SARS-CoV-2 (PCR) (NEGATIVE) 03/10/24 03/10/24 03/10/24 Range/Units 19:45 19:45 19:45 WBC (3.98-10.04) x10^3/uL RBC (3.93-5.22) x10^6/uL Hgb (11.2-15.7) g/dL Hct (34.1-44.9) % MCV (79.4-94.8) fL MCH (25.6-32.2) pg MCHC (32.2-35.5) g/dL RDW (11.7-14.4) % Plt Count (182-369) x10^3/uL MPV (9.4-12.3) fL Segmented Neutrophils (34.0-71.1) % Lymphocytes (Manual) (19.3-51.7) % Monocytes (Manual) (4.7-12.5) % Platelet Estimate (NORMAL) RBC Morphology Smear Path Review ESR 43 H (0-20) mm/hr Sodium 131 L (135-145) mmol/L Potassium 2.9 L* (3.5-5.1) mmol/L Chloride 101 (98-107) mmol/L Carbon Dioxide 20 L (22-30) mmol/L Anion Gap 12.7 (5-15) MEQ/L BUN 26 H (7-17) mg/dL Creatinine 1.28 H (0.52-1.04) mg/dL Estimated GFR 44.5 ML/MIN Glucose 220 H (74-106) mg/dL Lactic Acid (0.4-2.0) Calcium 6.9 L (8.4-10.2) mg/dL Magnesium (1.6-2.3) mg/dL Total Bilirubin 0.60 (0.2-1.3) mg/dL AST 15 (14-36) U/L ALT 9 (0-35) U/L Alkaline Phosphatase 92 (38-126) U/L Troponin I (0.000-0.033) ng/mL Serum Total Protein 6.0 L (6.3-8.2) g/dL Albumin 2.9 L (3.5-5.0) g/dL Lipase 41 (23-300) U/L Free T4 (0.78-2.19) ng/dL TSH 3rd Generation 0.808 (0.470-4.680) mIU/L Urine Color (Yellow) Urine Appearance (Clear) Urine pH (4.6-8.0) Ur Specific Happy (1.005-1.030) Urine Protein (Negative) Urine Glucose (UA) (Negative) mg/dL Urine Ketones (Negative) Urine Blood (Negative) Urine Nitrite (Negative) Urine Bilirubin (Negative) Urine Urobilinogen (0.2) mg/dL Ur Leukocyte Esterase (Negative) U Hyaline Cast (Auto) (0-2) /LPF Urine Microscopic RBC (0-5) /HPF Urine Microscopic WBC (0-5) /HPF Ur Epithelial Cells (None Seen) /HPF Urine Bacteria (None Seen) /HPF Urine Culture Reflexed (NO) Influenza Type A Ag (NEGATIVE) Influenza Type B Ag (NEGATIVE) RSV (PCR) (NEGATIVE) SARS-CoV-2 (PCR) (NEGATIVE) 03/10/24 03/10/24 03/10/24 Range/Units 19:45 19:45 19:45 WBC (3.98-10.04) x10^3/uL RBC (3.93-5.22) x10^6/uL Hgb (11.2-15.7) g/dL Hct (34.1-44.9) % MCV (79.4-94.8) fL MCH (25.6-32.2) pg MCHC (32.2-35.5) g/dL RDW (11.7-14.4) % Plt Count (182-369) x10^3/uL MPV (9.4-12.3) fL Segmented Neutrophils (34.0-71.1) % Lymphocytes (Manual) (19.3-51.7) % Monocytes (Manual) (4.7-12.5) % Platelet Estimate (NORMAL) RBC Morphology Smear Path Review ESR (0-20) mm/hr Sodium (135-145) mmol/L Potassium (3.5-5.1) mmol/L Chloride (98-107) mmol/L Carbon Dioxide (22-30) mmol/L Anion Gap (5-15) MEQ/L BUN (7-17) mg/dL Creatinine (0.52-1.04) mg/dL Estimated GFR ML/MIN Glucose (74-106) mg/dL Lactic Acid (0.4-2.0) Calcium (8.4-10.2) mg/dL Magnesium (1.6-2.3) mg/dL Total Bilirubin (0.2-1.3) mg/dL AST (14-36) U/L ALT (0-35) U/L Alkaline Phosphatase (38-126) U/L Troponin I < 0.012 (0.000-0.033) ng/mL Serum Total Protein (6.3-8.2) g/dL Albumin (3.5-5.0) g/dL Lipase (23-300) U/L Free T4 1.72 (0.78-2.19) ng/dL TSH 3rd Generation (0.470-4.680) mIU/L Urine Color (Yellow) Urine Appearance (Clear) Urine pH (4.6-8.0) Ur Specific Happy (1.005-1.030) Urine Protein (Negative) Urine Glucose (UA) (Negative) mg/dL Urine Ketones (Negative) Urine Blood (Negative) Urine Nitrite (Negative) Urine Bilirubin (Negative) Urine Urobilinogen (0.2) mg/dL Ur Leukocyte Esterase (Negative) U Hyaline Cast (Auto) (0-2) /LPF Urine Microscopic RBC (0-5) /HPF Urine Microscopic WBC (0-5) /HPF Ur Epithelial Cells (None Seen) /HPF Urine Bacteria (None Seen) /HPF Urine Culture Reflexed (NO) Influenza Type A Ag NEGATIVE (NEGATIVE) Influenza Type B Ag NEGATIVE (NEGATIVE) RSV (PCR) NEGATIVE (NEGATIVE) SARS-CoV-2 (PCR) NEGATIVE (NEGATIVE) 03/10/ Range/Units 20:27 WBC (3.98-10.04) x10^3/uL RBC (3.93-5.22) x10^6/uL Hgb (11.2-15.7) g/dL Hct (34.1-44.9) % MCV (79.4-94.8) fL MCH (25.6-32.2) pg MCHC (32.2-35.5) g/dL RDW (11.7-14.4) % Plt Count (182-369) x10^3/uL MPV (9.4-12.3) fL Segmented Neutrophils (34.0-71.1) % Lymphocytes (Manual) (19.3-51.7) % Monocytes (Manual) (4.7-12.5) % Platelet Estimate (NORMAL) RBC Morphology Smear Path Review ESR (0-20) mm/hr Sodium (135-145) mmol/L Potassium (3.5-5.1) mmol/L Chloride (98-107) mmol/L Carbon Dioxide (22-30) mmol/L Anion Gap (5-15) MEQ/L BUN (7-17) mg/dL Creatinine (0.52-1.04) mg/dL Estimated GFR ML/MIN Glucose (74-106) mg/dL Lactic Acid (0.4-2.0) Calcium (8.4-10.2) mg/dL Magnesium 2.4 H (1.6-2.3) mg/dL Total Bilirubin (0.2-1.3) mg/dL AST (14-36) U/L ALT (0-35) U/L Alkaline Phosphatase (38-126) U/L Troponin I (0.000-0.033) ng/mL Serum Total Protein (6.3-8.2) g/dL Albumin (3.5-5.0) g/dL Lipase (23-300) U/L Free T4 (0.78-2.19) ng/dL TSH 3rd Generation (0.470-4.680) mIU/L Urine Color (Yellow) Urine Appearance (Clear) Urine pH (4.6-8.0) Ur Specific Happy (1.005-1.030) Urine Protein (Negative) Urine Glucose (UA) (Negative) mg/dL Urine Ketones (Negative) Urine Blood (Negative) Urine Nitrite (Negative) Urine Bilirubin (Negative) Urine Urobilinogen (0.2) mg/dL Ur Leukocyte Esterase (Negative) U Hyaline Cast (Auto) (0-2) /LPF Urine Microscopic RBC (0-5) /HPF Urine Microscopic WBC (0-5) /HPF Ur Epithelial Cells (None Seen) /HPF Urine Bacteria (None Seen) /HPF Urine Culture Reflexed (NO) Influenza Type A Ag (NEGATIVE) Influenza Type B Ag (NEGATIVE) RSV (PCR) (NEGATIVE) SARS-CoV-2 (PCR) (NEGATIVE) - Radiology Impressions Radiology Exams & Impressions: Radiology Procedures Category Date Time Status ABDOMEN AND PELVIS W/0 CONTRAS [CT] Stat Exams 03/10/24 19:28 Completed Assessment/Plan (1) Diabetes mellitus Current Visit: Yes Status: Chronic Qualifiers: Diabetes mellitus type: type 2 Code(s): E11.9 - TYPE 2 DIABETES MELLITUS WITHOUT COMPLICATIONS (2) Hypokalemia Current Visit: Yes Status: Acute Code(s): E87.6 - HYPOKALEMIA (3) Leukocytosis Current Visit: Yes Status: Acute Code(s): D72.829 - ELEVATED WHITE BLOOD CELL COUNT, UNSPECIFIED (4) Diarrhea Current Visit: Yes Status: Acute Code(s): R19.7 - DIARRHEA, UNSPECIFIED Telemedicine Encounter - Telemedicine Encounter Telemedicine Encounter: The entirety of this encounter was performed via TelemedicinThis visit was performed using real-time audio and video connection between my location and thepatients locationwith the assistance of a surrogateat the patients location. Written or verbal consent was obtained from the patient/guardian to perform this visit using[facility] technology. Any patient questions regarding the telemedicine interaction were answered. Diarrhea Ongoing few weeks got worse for last 5-7 days Recently started on ozympic one week ago CT abdomen pelvis remained unremarkable except concerning some inflammatory changes Patient underwent colonoscopy last year remained negative Pending stool studies/pending C. difficile Continue supportive therapy with IV fluids Hypokalemia Potassium 2.9 Will replace and recheck it in the morning Calcium low but corrected should be Ok Hyponatremia Seems hypovolemic hyponatremia due to GI loss Continue IV fluids Keep monitoring sodium closely leukocytosis Due to possible underlying C. difficile infection Keep following up cultures I will keep holding antibiotic until C. difficile gets reported Diabetes mellitus type 2 Last HbA1c reported 6.0 on 03/06 patient is on Farxiga at home currently, Currently started on Ozempic 1 week ago Continue with above for diabetes associated neuropathies Right breast nodule Soft tissue right breast nodule noted upon CT Needs ultrasound breast nonemergent care as outpatient DVT PPX SCD CODE STATUS full Discharge planning pending clinical stability. I have reviewed patient lab vitals and imaging in detail question and concerns were addressed BP stable to the medical symptoms he
[2024-03-10] MEDS ORDERED: Zofran 4 MG/2 ML VIAL IV PRN (23:21)
[2024-03-10] MEDS: Sodium Chloride 0.9% 1000 ML 1,000 ML IV SCH (23:49)
[2024-03-10] MEDS: POTASSIUM CHLORIDE 20 mEq IN WATER 100ML 20 MEQ/100 ML BAG IV SCH (23:49)
[2024-03-11] MEDS: Calcium Gluconate 10% 1000 MG 1,000 MG in Sodium Chloride 0.9% 100 ML IV ONE (00:21)
[2024-03-11] MEDS: CALCIUM CHLORIDE 10% 1000 MG IV ONE (00:21)
[2024-03-11 04:50] LABS: Hematocrit 37.9 % (34.1-44.9); Hemoglobin 12.2 g/dL (11.2-15.7); Mean Cell Volume 89.2 fL (79.4-94.8); Mean Corpuscular Hemoglobin 28.7 pg (25.6-32.2); Mean Corpuscular Hgb Concent. 32.2 g/dL (32.2-35.5); Mean Platelet Volume 9.5 fL (9.4-12.3); Platelet Count 255 x10^3/uL (182-369); Red Blood Count 4.25 x10^6/uL (3.93-5.22); Red Cell Distribution Width 13.6 % (11.7-14.4)
[2024-03-11 05:21] LABS: ANION GAP 20.2 MEQ/L (5-15); Creatinine 1 1.02 mg/dL (0.52-1.04); EST GLOMERULAR FILTRATION RATE 58.5 ML/MIN; Potassium 4.9 mmol/L (3.5-5.1)
[2024-03-11 05:23] LABS: White Blood Count 27.2 x10^3/uL (3.98-10.04)
[2024-03-11] MEDS ORDERED: SODIUM BICARBONATE 50 MEQ/50 ML ABBOJECT IV ONE (06:08)
[2024-03-11] MEDS: [UNRECOGNIZED DRUG - OTHER] IV SCH (06:22)
[2024-03-11] MEDS: SODIUM BICARBONATE IV SCH (06:22)
[2024-03-11] MEDS ORDERED: MEDICATION INTERVENTION MC SCH (07:15)
[2024-03-11 07:17] VITALS: RESP 16
[2024-03-11] MEDS ORDERED: NON-FORMULARY ITEM (Dapagliflozin Propanediol [Farxiga] 5 MG Tablet) PO SCH (10:00)
[2024-03-11 10:18] LABS: IFOB TEST RESULTS POSITIVE (NEGATIVE)
[2024-03-11] MEDS: ENOXAPARIN SODIUM SQ SCH (10:25)
[2024-03-11] MEDS: ZOCOR 20MG PO SCH (10:35)
[2024-03-11] MEDS: FEOSOL 325 MG PO SCH (10:35)
[2024-03-11 10:53] LABS: 027 TOX PROD PRESUMPTIVE NEGATIVE (NEGATIVE)
--- NOTE | 2024-03-11 11:00 | PCM.NOTE ---
Date and Time: 03/11/24 1041 Subjective Assessment: 73-year-old white pleasant lady with past medical history significant for diabetes mellitus type 2 on with some associated neuropathy is currently on gabapentin came to the ER complaining of diarrhea. She has been having diarrhea for few weeks, got worse for last one week, she is having loose stools every other minute with out significant abd pain, Nausea/vomiting. No fever reported. She admits to starting Ozempic x 1 week ago. 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 She has not tried any diarrhea medicine from [id number]. Stool cultures and C. difficile results still pending. CT abdomen pelvis showed diffuse colonic wall thickening with diffuse mild surrounding fat smudging likely inflammatory for clinical correlation. General surgery was consulted for possible colonoscopy. CT also revealed right breast nodule in lower left quadrant recommended outpatient ultrasound. Urine culture results are negative. Pt CO2 was 13 this A.M. and was started on sodium bicarb drip. Pt denies any further concerns at this time. - Review of Systems Constitutional: No Fever, No Chills Eyes: No Symptoms Ears, Nose, & Throat: No Symptoms Respiratory: No Cough, No Short Of Breath Cardiac: No Chest Pain, No Edema, No Syncope Abdominal/Gastrointestinal: No Abdominal Pain, No Nausea, No Vomiting, No Diarrhea Genitourinary Symptoms: No Dysuria Musculoskeletal: No Back Pain, No Neck Pain Skin: No Rash Neurological: No Dizziness, No Focal Weakness, No Sensory Changes Psychological: No Symptoms Endocrine: No Symptoms Hematologic/Lymphatic: No Symptoms Immunological/Allergic: No Symptoms Objective Exam General Appearance: no apparent distress, alert Neurologic Exam: alert, oriented x 3, cooperative, normal mood/affect, nml cerebellar function, sensation nml, No motor deficits Skin Exam: normal color, warm, dry Wound Assessment: Skin/Wound Assessment Wound/Incision Assessment Start: 03/10/24 23:36 Text: Status: Active Freq: Q6H Protocol: Document 03/11/24 04:45 KD (Rec: 03/11/24 05:01 KD [id number]) Wound/Incision Assessment Left Elbow Wound Assessment Shift Assessment Wound Type Skin Tear Wound Stage Non Pressure Wound Drainage Amount Minimal Drainage Description Serous General Appearance Open to air,Bleeding Primary Dressing tegaderm Comment tegaderm applied Wound Photo Photo Taken Yes Date: 03/11/24 Time: 04:40 Comment: new picture of L elbow taken Eye Exam: PERRL, EOMI, eyes nml inspection Ears, Nose, Throat Exam: normal ENT inspection, pharynx normal, moist mucous membranes Neck Exam: normal inspection, non-tender, supple, full range of motion Respiratory Exam: normal breath sounds, lungs clear, No respiratory distress Cardiovascular Exam: regular rate/rhythm, normal heart sounds Gastrointestinal/Abdomen Exam: soft, No tenderness, No mass Extremity Exam: normal inspection, normal range of motion Back Exam: normal inspection, normal range of motion, No CVA tenderness, No vertebral tenderness Pelvic Exam: deferred Rectal Exam: deferred Objective Data Vital Signs: Vital Signs - 24 hr Temp Pulse Resp BP BP Pulse Ox 03/11/24 07:16 98.4 F 66 16 106/51 100 03/11/24 04:00 97.6 F 60 17 105/56 97 03/10/24 23:25 98 03/10/24 22:39 98.6 F 64 18 107/59 96 03/10/24 22:00 80 121/70 97 03/10/24 21:30 81 117/71 99 03/10/24 21:00 78 130/63 100 03/10/24 20:30 132/69 99 03/10/24 19:30 106/66 95 03/10/24 19:00 118/73 96 03/10/24 18:58 98.7 F 80 20 118/73 98 Pain Assessment - Last Documented Pain Intensity 0 Intake and Output: Intake & Output 03/08/24 03/09/24 03/10/24 03/11/24 11:59 11:59 11:59 11:59 Intake Total 120 Balance 120 Weight 49 kg Lab Results: Lab Results-Last 24 Hours 03/10/24 03/10/24 03/10/24 Range/Units 19:30 19:45 19:45 WBC 33.0 H* (3.98-10.04) x10^3/uL RBC 4.20 (3.93-5.22) x10^6/uL Hgb 12.2 (11.2-15.7) g/dL Hct 36.6 (34.1-44.9) % MCV 87.1 (79.4-94.8) fL MCH 29.0 (25.6-32.2) pg MCHC 33.3 (32.2-35.5) g/dL RDW 13.3 (11.7-14.4) % Plt Count 277 (182-369) x10^3/uL MPV 8.7 L (9.4-12.3) fL Segmented Neutrophils 94 H (34.0-71.1) % Lymphocytes (Manual) 2 L (19.3-51.7) % Monocytes (Manual) 4 L (4.7-12.5) % Platelet Estimate NORMAL (NORMAL) RBC Morphology NORMAL Smear Path Review Pending ESR (0-20) mm/hr Sodium (135-145) mmol/L Potassium (3.5-5.1) mmol/L Chloride (98-107) mmol/L Carbon Dioxide (22-30) mmol/L Anion Gap (5-15) MEQ/L BUN (7-17) mg/dL Creatinine (0.52-1.04) mg/dL Estimated GFR ML/MIN Glucose (74-106) mg/dL POC Glucometer (74 to 106) mg/dL Lactic Acid 1.3 (0.4-2.0) Calcium (8.4-10.2) mg/dL Magnesium (1.6-2.3) mg/dL Total Bilirubin (0.2-1.3) mg/dL AST (14-36) U/L ALT (0-35) U/L Alkaline Phosphatase (38-126) U/L Troponin I (0.000-0.033) ng/mL Serum Total Protein (6.3-8.2) g/dL Albumin (3.5-5.0) g/dL Prealbumin (17.6-36.0) mg/dL Lipase (23-300) U/L Free T4 (0.78-2.19) ng/dL TSH 3rd Generation (0.470-4.680) mIU/L Urine Color Yellow (Yellow) Urine Appearance Clear (Clear) Urine pH 6.0 (4.6-8.0) Ur Specific Hastings >=1.030 A (1.005-1.030) Urine Protein Trace A (Negative) Urine Glucose (UA) >=1000 A (Negative) mg/dL Urine Ketones Trace A (Negative) Urine Blood Negative (Negative) Urine Nitrite Negative (Negative) Urine Bilirubin Negative (Negative) Urine Urobilinogen 0.2 (0.2) mg/dL Ur Leukocyte Esterase Negative (Negative) U Hyaline Cast (Auto) NONE SEEN (0-2) /LPF Urine Microscopic RBC 3-5 (0-5) /HPF Urine Microscopic WBC 3-5 (0-5) /HPF Ur Epithelial Cells Rare (None Seen) /HPF Urine Bacteria None Seen (None Seen) /HPF Urine Culture Reflexed NO (NO) Stl Occult Blood (IFOB) (NEGATIVE) Influenza Type A Ag (NEGATIVE) Influenza Type B Ag (NEGATIVE) RSV (PCR) (NEGATIVE) SARS-CoV-2 (PCR) (NEGATIVE) 03/10/24 03/10/24 03/10/24 Range/Units 19:45 19:45 19:45 WBC (3.98-10.04) x10^3/uL RBC (3.93-5.22) x10^6/uL Hgb (11.2-15.7) g/dL Hct (34.1-44.9) % MCV (79.4-94.8) fL MCH (25.6-32.2) pg MCHC (32.2-35.5) g/dL RDW (11.7-14.4) % Plt Count (182-369) x10^3/uL MPV (9.4-12.3) fL Segmented Neutrophils (34.0-71.1) % Lymphocytes (Manual) (19.3-51.7) % Monocytes (Manual) (4.7-12.5) % Platelet Estimate (NORMAL) RBC Morphology Smear Path Review ESR 43 H (0-20) mm/hr Sodium 131 L (135-145) mmol/L Potassium 2.9 L* (3.5-5.1) mmol/L Chloride 101 (98-107) mmol/L Carbon Dioxide 20 L (22-30) mmol/L Anion Gap 12.7 (5-15) MEQ/L BUN 26 H (7-17) mg/dL Creatinine 1.28 H (0.52-1.04) mg/dL Estimated GFR 44.5 ML/MIN Glucose 220 H (74-106) mg/dL POC Glucometer (74 to 106) mg/dL Lactic Acid (0.4-2.0) Calcium 6.9 L (8.4-10.2) mg/dL Magnesium (1.6-2.3) mg/dL Total Bilirubin 0.60 (0.2-1.3) mg/dL AST 15 (14-36) U/L ALT 9 (0-35) U/L Alkaline Phosphatase 92 (38-126) U/L Troponin I (0.000-0.033) ng/mL Serum Total Protein 6.0 L (6.3-8.2) g/dL Albumin 2.9 L (3.5-5.0) g/dL Prealbumin (17.6-36.0) mg/dL Lipase 41 (23-300) U/L Free T4 (0.78-2.19) ng/dL TSH 3rd Generation 0.808 (0.470-4.680) mIU/L Urine Color (Yellow) Urine Appearance (Clear) Urine pH (4.6-8.0) Ur Specific [place] (1.005-1.030) Urine Protein (Negative) Urine Glucose (UA) (Negative) mg/dL Urine Ketones (Negative) Urine Blood (Negative) Urine Nitrite (Negative) Urine Bilirubin (Negative) Urine Urobilinogen (0.2) mg/dL Ur Leukocyte Esterase (Negative) U Hyaline Cast (Auto) (0-2) /LPF Urine Microscopic RBC (0-5) /HPF Urine Microscopic WBC (0-5) /HPF Ur Epithelial Cells (None Seen) /HPF Urine Bacteria (None Seen) /HPF Urine Culture Reflexed (NO) Stl Occult Blood (IFOB) (NEGATIVE) Influenza Type A Ag (NEGATIVE) Influenza Type B Ag (NEGATIVE) RSV (PCR) (NEGATIVE) SARS-CoV-2 (PCR) (NEGATIVE) 03/10/24 03/10/24 03/10/24 Range/Units 19:45 19:45 19:45 WBC (3.98-10.04) x10^3/uL RBC (3.93-5.22) x10^6/uL Hgb (11.2-15.7) g/dL Hct (34.1-44.9) % MCV (79.4-94.8) fL MCH (25.6-32.2) pg MCHC (32.2-35.5) g/dL RDW (11.7-14.4) % Plt Count (182-369) x10^3/uL MPV (9.4-12.3) fL Segmented Neutrophils (34.0-71.1) % Lymphocytes (Manual) (19.3-51.7) % Monocytes (Manual) (4.7-12.5) % Platelet Estimate (NORMAL) RBC Morphology Smear Path Review ESR (0-20) mm/hr Sodium (135-145) mmol/L Potassium (3.5-5.1) mmol/L Chloride (98-107) mmol/L Carbon Dioxide (22-30) mmol/L Anion Gap (5-15) MEQ/L BUN (7-17) mg/dL Creatinine (0.52-1.04) mg/dL Estimated GFR ML/MIN Glucose (74-106) mg/dL POC Glucometer (74 to 106) mg/dL Lactic Acid (0.4-2.0) Calcium (8.4-10.2) mg/dL Magnesium (1.6-2.3) mg/dL Total Bilirubin (0.2-1.3) mg/dL AST (14-36) U/L ALT (0-35) U/L Alkaline Phosphatase (38-126) U/L Troponin I < 0.012 (0.000-0.033) ng/mL Serum Total Protein (6.3-8.2) g/dL Albumin (3.5-5.0) g/dL Prealbumin (17.6-36.0) mg/dL Lipase (23-300) U/L Free T4 1.72 (0.78-2.19) ng/dL TSH 3rd Generation (0.470-4.680) mIU/L Urine Color (Yellow) Urine Appearance (Clear) Urine pH (4.6-8.0) Ur Specific [place] (1.005-1.030) Urine Protein (Negative) Urine Glucose (UA) (Negative) mg/dL Urine Ketones (Negative) Urine Blood (Negative) Urine Nitrite (Negative) Urine Bilirubin (Negative) Urine Urobilinogen (0.2) mg/dL Ur Leukocyte Esterase (Negative) U Hyaline Cast (Auto) (0-2) /LPF Urine Microscopic RBC (0-5) /HPF Urine Microscopic WBC (0-5) /HPF Ur Epithelial Cells (None Seen) /HPF Urine Bacteria (None Seen) /HPF Urine Culture Reflexed (NO) Stl Occult Blood (IFOB) (NEGATIVE) Influenza Type A Ag NEGATIVE (NEGATIVE) Influenza Type B Ag NEGATIVE (NEGATIVE) RSV (PCR) NEGATIVE (NEGATIVE) SARS-CoV-2 (PCR) NEGATIVE (NEGATIVE) 03/10/24 03/10/24 03/10/24 Range/Units 20:27 23:23 23:27 WBC (3.98-10.04) x10^3/uL RBC (3.93-5.22) x10^6/uL Hgb (11.2-15.7) g/dL Hct (34.1-44.9) % MCV (79.4-94.8) fL MCH (25.6-32.2) pg MCHC (32.2-35.5) g/dL RDW (11.7-14.4) % Plt Count (182-369) x10^3/uL MPV (9.4-12.3) fL Segmented Neutrophils (34.0-71.1) % Lymphocytes (Manual) (19.3-51.7) % Monocytes (Manual) (4.7-12.5) % Platelet Estimate (NORMAL) RBC Morphology Smear Path Review ESR (0-20) mm/hr Sodium (135-145) mmol/L Potassium (3.5-5.1) mmol/L Chloride (98-107) mmol/L Carbon Dioxide (22-30) mmol/L Anion Gap (5-15) MEQ/L BUN (7-17) mg/dL Creatinine (0.52-1.04) mg/dL Estimated GFR ML/MIN Glucose (74-106) mg/dL POC Glucometer (74 to 106) mg/dL Lactic Acid (0.4-2.0) Calcium (8.4-10.2) mg/dL Magnesium 2.4 H (1.6-2.3) mg/dL Total Bilirubin (0.2-1.3) mg/dL AST (14-36) U/L ALT (0-35) U/L Alkaline Phosphatase (38-126) U/L Troponin I < 0.012 (0.000-0.033) ng/mL Serum Total Protein (6.3-8.2) g/dL Albumin (3.5-5.0) g/dL Prealbumin 4.07 L (17.6-36.0) mg/dL Lipase (23-300) U/L Free T4 (0.78-2.19) ng/dL TSH 3rd Generation (0.470-4.680) mIU/L Urine Color (Yellow) Urine Appearance (Clear) Urine pH (4.6-8.0) Ur Specific [place] (1.005-1.030) Urine Protein (Negative) Urine Glucose (UA) (Negative) mg/dL Urine Ketones (Negative) Urine Blood (Negative) Urine Nitrite (Negative) Urine Bilirubin (Negative) Urine Urobilinogen (0.2) mg/dL Ur Leukocyte Esterase (Negative) U Hyaline Cast (Auto) (0-2) /LPF Urine Microscopic RBC (0-5) /HPF Urine Microscopic WBC (0-5) /HPF Ur Epithelial Cells (None Seen) /HPF Urine Bacteria (None Seen) /HPF Urine Culture Reflexed (NO) Stl Occult Blood (IFOB) (NEGATIVE) Influenza Type A Ag (NEGATIVE) Influenza Type B Ag (NEGATIVE) RSV (PCR) (NEGATIVE) SARS-CoV-2 (PCR) (NEGATIVE) 03/10/24 03/11/24 03/11/24 Range/Units 23:37 04:35 04:35 WBC 27.2 H* (3.98-10.04) x10^3/uL RBC 4.25 (3.93-5.22) x10^6/uL Hgb 12.2 (11.2-15.7) g/dL Hct 37.9 (34.1-44.9) % MCV 89.2 (79.4-94.8) fL MCH 28.7 (25.6-32.2) pg MCHC 32.2 (32.2-35.5) g/dL RDW 13.6 (11.7-14.4) % Plt Count 255 (182-369) x10^3/uL MPV 9.5 (9.4-12.3) fL Segmented Neutrophils (34.0-71.1) % Lymphocytes (Manual) (19.3-51.7) % Monocytes (Manual) (4.7-12.5) % Platelet Estimate (NORMAL) RBC Morphology Smear Path Review ESR (0-20) mm/hr Sodium 137 (135-145) mmol/L Potassium 4.9 D (3.5-5.1) mmol/L Chloride 108 H (98-107) mmol/L Carbon Dioxide 13 L* (22-30) mmol/L Anion Gap 20.2 H (5-15) MEQ/L BUN 25 H (7-17) mg/dL Creatinine 1.02 (0.52-1.04) mg/dL Estimated GFR 58.5 ML/MIN Glucose 200 H (74-106) mg/dL POC Glucometer (74 to 106) mg/dL Lactic Acid (0.4-2.0) Calcium 8.0 L D (8.4-10.2) mg/dL Magnesium 2.4 H (1.6-2.3) mg/dL Total Bilirubin (0.2-1.3) mg/dL AST (14-36) U/L ALT (0-35) U/L Alkaline Phosphatase (38-126) U/L Troponin I (0.000-0.033) ng/mL Serum Total Protein (6.3-8.2) g/dL Albumin (3.5-5.0) g/dL Prealbumin (17.6-36.0) mg/dL Lipase (23-300) U/L Free T4 (0.78-2.19) ng/dL TSH 3rd Generation (0.470-4.680) mIU/L Urine Color (Yellow) Urine Appearance (Clear) Urine pH (4.6-8.0) Ur Specific [place] (1.005-1.030) Urine Protein (Negative) Urine Glucose (UA) (Negative) mg/dL Urine Ketones (Negative) Urine Blood (Negative) Urine Nitrite (Negative) Urine Bilirubin (Negative) Urine Urobilinogen (0.2) mg/dL Ur Leukocyte Esterase (Negative) U Hyaline Cast (Auto) (0-2) /LPF Urine Microscopic RBC (0-5) /HPF Urine Microscopic WBC (0-5) /HPF Ur Epithelial Cells (None Seen) /HPF Urine Bacteria (None Seen) /HPF Urine Culture Reflexed (NO) Stl Occult Blood (IFOB) (NEGATIVE) Influenza Type A Ag (NEGATIVE) Influenza Type B Ag (NEGATIVE) RSV (PCR) (NEGATIVE) SARS-CoV-2 (PCR) (NEGATIVE) 03/11/24 03/11/24 03/11/24 Range/Units 07:35 07:35 07:37 WBC (3.98-10.04) x10^3/uL RBC (3.93-5.22) x10^6/uL Hgb (11.2-15.7) g/dL Hct (34.1-44.9) % MCV (79.4-94.8) fL MCH (25.6-32.2) pg MCHC (32.2-35.5) g/dL RDW (11.7-14.4) % Plt Count (182-369) x10^3/uL MPV (9.4-12.3) fL Segmented Neutrophils (34.0-71.1) % Lymphocytes (Manual) (19.3-51.7) % Monocytes (Manual) (4.7-12.5) % Platelet Estimate (NORMAL) RBC Morphology Smear Path Review ESR (0-20) mm/hr Sodium (135-145) mmol/L Potassium 4.1 (3.5-5.1) mmol/L Chloride (98-107) mmol/L Carbon Dioxide (22-30) mmol/L Anion Gap (5-15) MEQ/L BUN (7-17) mg/dL Creatinine (0.52-1.04) mg/dL Estimated GFR ML/MIN Glucose (74-106) mg/dL POC Glucometer 188 H (74 to 106) mg/dL Lactic Acid (0.4-2.0) Calcium (8.4-10.2) mg/dL Magnesium 2.5 H (1.6-2.3) mg/dL Total Bilirubin (0.2-1.3) mg/dL AST (14-36) U/L ALT (0-35) U/L Alkaline Phosphatase (38-126) U/L Troponin I (0.000-0.033) ng/mL Serum Total Protein (6.3-8.2) g/dL Albumin (3.5-5.0) g/dL Prealbumin (17.6-36.0) mg/dL Lipase (23-300) U/L Free T4 (0.78-2.19) ng/dL TSH 3rd Generation (0.470-4.680) mIU/L Urine Color (Yellow) Urine Appearance (Clear) Urine pH (4.6-8.0) Ur Specific [place] (1.005-1.030) Urine Protein (Negative) Urine Glucose (UA) (Negative) mg/dL Urine Ketones (Negative) Urine Blood (Negative) Urine Nitrite (Negative) Urine Bilirubin (Negative) Urine Urobilinogen (0.2) mg/dL Ur Leukocyte Esterase (Negative) U Hyaline Cast (Auto) (0-2) /LPF Urine Microscopic RBC (0-5) /HPF Urine Microscopic WBC (0-5) /HPF Ur Epithelial Cells (None Seen) /HPF Urine Bacteria (None Seen) /HPF Urine Culture Reflexed (NO) Stl Occult Blood (IFOB) (NEGATIVE) Influenza Type A Ag (NEGATIVE) Influenza Type B Ag (NEGATIVE) RSV (PCR) (NEGATIVE) SARS-CoV-2 (PCR) (NEGATIVE) 03/11/24 Range/Units 09:06 WBC (3.98-10.04) x10^3/uL RBC (3.93-5.22) x10^6/uL Hgb (11.2-15.7) g/dL Hct (34.1-44.9) % MCV (79.4-94.8) fL MCH (25.6-32.2) pg MCHC (32.2-35.5) g/dL RDW (11.7-14.4) % Plt Count (182-369) x10^3/uL MPV (9.4-12.3) fL Segmented Neutrophils (34.0-71.1) % Lymphocytes (Manual) (19.3-51.7) % Monocytes (Manual) (4.7-12.5) % Platelet Estimate (NORMAL) RBC Morphology Smear Path Review ESR (0-20) mm/hr Sodium (135-145) mmol/L Potassium (3.5-5.1) mmol/L Chloride (98-107) mmol/L Carbon Dioxide (22-30) mmol/L Anion Gap (5-15) MEQ/L BUN (7-17) mg/dL Creatinine (0.52-1.04) mg/dL Estimated GFR ML/MIN Glucose (74-106) mg/dL POC Glucometer (74 to 106) mg/dL Lactic Acid (0.4-2.0) Calcium (8.4-10.2) mg/dL Magnesium (1.6-2.3) mg/dL Total Bilirubin (0.2-1.3) mg/dL AST (14-36) U/L ALT (0-35) U/L Alkaline Phosphatase (38-126) U/L Troponin I (0.000-0.033) ng/mL Serum Total Protein (6.3-8.2) g/dL Albumin (3.5-5.0) g/dL Prealbumin (17.6-36.0) mg/dL Lipase (23-300) U/L Free T4 (0.78-2.19) ng/dL TSH 3rd Generation (0.470-4.680) mIU/L Urine Color (Yellow) Urine Appearance (Clear) Urine pH (4.6-8.0) Ur Specific [place] (1.005-1.030) Urine Protein (Negative) Urine Glucose (UA) (Negative) mg/dL Urine Ketones (Negative) Urine Blood (Negative) Urine Nitrite (Negative) Urine Bilirubin (Negative) Urine Urobilinogen (0.2) mg/dL Ur Leukocyte Esterase (Negative) U Hyaline Cast (Auto) (0-2) /LPF Urine Microscopic RBC (0-5) /HPF Urine Microscopic WBC (0-5) /HPF Ur Epithelial Cells (None Seen) /HPF Urine Bacteria (None Seen) /HPF Urine Culture Reflexed (NO) Stl Occult Blood (IFOB) POSITIVE A (NEGATIVE) Influenza Type A Ag (NEGATIVE) Influenza Type B Ag (NEGATIVE) RSV (PCR) (NEGATIVE) SARS-CoV-2 (PCR) (NEGATIVE) Radiology Exams: Radiology Procedures Category Date Time Status ABDOMEN AND PELVIS W/0 CONTRAS [CT] Stat Exams 03/10/24 19:28 Completed Assessment/Plan (1) Diarrhea Current Visit: Yes Status: Acute Assessment & Plan: Ongoing few weeks got worse for last 5-7 days Recently started on ozympic one week ago CT abdomen pelvis remained unremarkable except concerning some inflammatory changes Patient underwent colonoscopy last year remained negative Pending stool studies/pending C. difficile Continue supportive therapy with IV fluids -03/11 Consulted Genral surgery -Made pt NPO -Sodium Bicarb drip started -C. Difficle results still pending Code(s): R19.7 - DIARRHEA, UNSPECIFIED (2) Hypokalemia Current Visit: Yes Status: Resolved Assessment & Plan: Potassium 2.9 Will replace and recheck it in the morning Calcium low but corrected should be Ok 03/11 -Resolved potassium 4.1 today Code(s): E87.6 - HYPOKALEMIA (3) Hyponatremia Current Visit: Yes Status: Acute Assessment & Plan: Seems hypovolemic hyponatremia due to GI loss Continue IV fluids Keep monitoring sodium closely 03/11 -Resolved today Sodium 137 Code(s): E87.1 - HYPO-OSMOLALITY AND HYPONATREMIA (4) Leukocytosis Current Visit: Yes Status: Acute Assessment & Plan: Due to possible underlying C. difficile infection Keep following up cultures I will keep holding antibiotic until C. difficile gets reported 03/11- -WBC 27.2 improving -C. 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
[2024-03-11 11:25] LABS: TOXIGENIC C. DIFF ORG POSITIVE (NEGATIVE)
[2024-03-11] MEDS: HUMALOG SQ PRN (12:48)
[2024-03-11] MEDS: NEURONTIN PO SCH (21:07)
[2024-03-12 04:32] LABS: Hematocrit 31.8 % (34.1-44.9); Hemoglobin 10.6 g/dL (11.2-15.7); Mean Cell Volume 85.3 fL (79.4-94.8); Mean Corpuscular Hemoglobin 28.4 pg (25.6-32.2); Mean Corpuscular Hgb Concent. 33.3 g/dL (32.2-35.5); Platelet Count 245 x10^3/uL (182-369); Red Blood Count 3.73 x10^6/uL (3.93-5.22); Red Cell Distribution Width 13.7 % (11.7-14.4); White Blood Count 21.7 x10^3/uL (3.98-10.04)
[2024-03-12 04:55] LABS: ALBUMIN 2.3 g/dL (3.5-5.0); ANION GAP 11.6 MEQ/L (5-15); BILIRUBIN,TOTAL 0.3 mg/dL (0.2-1.3); Calcium 6.6 mg/dL (8.4-10.2); Creatinine 1 0.93 mg/dL (0.52-1.04); EST GLOMERULAR FILTRATION RATE 65.3 ML/MIN; MAGNESIUM 2.4 mg/dL (1.6-2.3); Potassium 3.5 mmol/L (3.5-5.1); Total Protein 4.9 g/dL (6.3-8.2)
[2024-03-12] MEDS: ECOTRIN 81 MG PO SCH (09:40)
[2024-03-12] MEDS: Tums EX 750 MG PO SCH (09:41)
--- NOTE | 2024-03-12 09:53 | PCM.DS ---
Discharge Summary Date of Admission: 03/10/24 22:15 Date of Discharge: 03/12/24 Admitting Physician: MARISABEL LANDRY MD Consults: Consults on Case 03/11/24 08:17 Consult Surgery ROUTINE Primary Care Provider: ADE WANG DO Allergies Allergies Penicillins Allergy (Mild, Verified 03/10/24 18:52) Hospital Summary - Hospital Course Hospital Course: 73-year-old white pleasant lady with past medical history significant for diabetes mellitus type 2 on with some associated neuropathy is currently on gabapentin. She came to the ER on 03/11/24 complaining of diarrhea. She has been having diarrhea for few weeks, got worse for last one week, she is having loose stools every other minute with out significant abd pain, nausea/vomiting. No fever reported. She admits to starting Ozempic x 1 week ago. 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 She has not tried any diarrhea medicine from [id number]. Stool cultures and C. difficile results still pending. CT abdomen pelvis showed diffuse colonic wall thickening with diffuse mild surrounding fat smudging likely inflammatory for clinical correlation. General surgery was consulted for possible colonoscopy, they recommended OP f/u. CT also revealed right breast nodule in lower left quadrant recommended outpatient ultrasound. Urine culture results are negative. CO2 improved and bicarb gtt stopped today. Ca+ 7.6 and tums BID started. WBC improved 21.7. She has not had any diarrhea since admission. Sxs likely 2:2 side effects of ozem pic. Recommend she stop this medication and f/u with PCP OP to discuss other medication options. Pt was able to walk around unit today w/o concerns. She really wants to d/c home as she has a dog she needs to take care of. She will need repeat labs OP to recheck WBC count. She denies any further concerns at this time and reports she feels fine today. - Vitals & Intake/Output Vital Signs: Vital Signs Temperature 97.9 F 03/12/24 07:29 Pulse Rate 57 L 03/12/24 07:29 Respiratory Rate 16 03/12/24 07:29 Blood Pressure 99/55 03/12/24 07:29 O2 Sat by Pulse Oximetry 95 03/12/24 07:29 Intake & Output: Intake & Output 03/09/24 03/10/24 03/11/24 03/12/24 11:59 11:59 11:59 11:59 Intake Total 120 1999 Balance 120 1999 Weight 49 kg 49.2 kg - Lab Result Diagrams: 03/12/24 04:28 03/12/24 04:28 Lab Results-Last 24 Hrs: Lab Results-Last 24 Hours 03/10/24 03/11/24 03/11/24 Range/Units 20:27 09:06 09:06 WBC (3.98-10.04) x10^3/uL RBC (3.93-5.22) x10^6/uL Hgb (11.2-15.7) g/dL Hct (34.1-44.9) % MCV (79.4-94.8) fL MCH (25.6-32.2) pg MCHC (32.2-35.5) g/dL RDW (11.7-14.4) % Plt Count (182-369) x10^3/uL MPV (9.4-12.3) fL Sodium (135-145) mmol/L Potassium (3.5-5.1) mmol/L Chloride (98-107) mmol/L Carbon Dioxide (22-30) mmol/L Anion Gap (5-15) MEQ/L BUN (7-17) mg/dL Creatinine (0.52-1.04) mg/dL Estimated GFR ML/MIN Glucose (74-106) mg/dL POC Glucometer (74 to 106) mg/dL Calcium (8.4-10.2) mg/dL Magnesium (1.6-2.3) mg/dL Total Bilirubin (0.2-1.3) mg/dL AST (14-36) U/L ALT (0-35) U/L Alkaline Phosphatase (38-126) U/L Serum Total Protein (6.3-8.2) g/dL Albumin (3.5-5.0) g/dL Carcinoembryonic Ag 3.5 (0.0-4.7) ng/mL Stl Occult Blood (IFOB) POSITIVE A (NEGATIVE) C. difficile Screen POSITIVE (NEGATIVE) C.difficile 027-NAP1-B1 PRESUMPTIVE NEGATIVE (NEGATIVE) 03/11/24 03/11/24 03/11/24 Range/Units 11:57 16:22 21:25 WBC (3.98-10.04) x10^3/uL RBC (3.93-5.22) x10^6/uL Hgb (11.2-15.7) g/dL Hct (34.1-44.9) % MCV (79.4-94.8) fL MCH (25.6-32.2) pg MCHC (32.2-35.5) g/dL RDW (11.7-14.4) % Plt Count (182-369) x10^3/uL MPV (9.4-12.3) fL Sodium (135-145) mmol/L Potassium (3.5-5.1) mmol/L Chloride (98-107) mmol/L Carbon Dioxide (22-30) mmol/L Anion Gap (5-15) MEQ/L BUN (7-17) mg/dL Creatinine (0.52-1.04) mg/dL Estimated GFR ML/MIN Glucose (74-106) mg/dL POC Glucometer 271 H 183 H 264 H (74 to 106) mg/dL Calcium (8.4-10.2) mg/dL Magnesium (1.6-2.3) mg/dL Total Bilirubin (0.2-1.3) mg/dL AST (14-36) U/L ALT (0-35) U/L Alkaline Phosphatase (38-126) U/L Serum Total Protein (6.3-8.2) g/dL Albumin (3.5-5.0) g/dL Carcinoembryonic Ag (0.0-4.7) ng/mL Stl Occult Blood (IFOB) (NEGATIVE) C. difficile Screen (NEGATIVE) C.difficile 027-NAP1-B1 (NEGATIVE) 03/12/24 03/12/24 03/12/24 Range/Units 04:28 04:28 07:37 WBC 21.7 H (3.98-10.04) x10^3/uL RBC 3.73 L (3.93-5.22) x10^6/uL Hgb 10.6 L (11.2-15.7) g/dL Hct 31.8 L (34.1-44.9) % MCV 85.3 (79.4-94.8) fL MCH 28.4 (25.6-32.2) pg MCHC 33.3 (32.2-35.5) g/dL RDW 13.7 (11.7-14.4) % Plt Count 245 (182-369) x10^3/uL MPV 9.0 L (9.4-12.3) fL Sodium 135 (135-145) mmol/L Potassium 3.5 (3.5-5.1) mmol/L Chloride 104 (98-107) mmol/L Carbon Dioxide 23 (22-30) mmol/L Anion Gap 11.6 (5-15) MEQ/L BUN 34 H (7-17) mg/dL Creatinine 0.93 (0.52-1.04) mg/dL Estimated GFR 65.3 ML/MIN Glucose 226 H (74-106) mg/dL POC Glucometer 192 H (74 to 106) mg/dL Calcium 6.6 L D (8.4-10.2) mg/dL Magnesium 2.4 H (1.6-2.3) mg/dL Total Bilirubin 0.30 (0.2-1.3) mg/dL AST 14 (14-36) U/L ALT 8 (0-35) U/L Alkaline Phosphatase 66 (38-126) U/L Serum Total Protein 4.9 L (6.3-8.2) g/dL Albumin 2.3 L (3.5-5.0) g/dL Carcinoembryonic Ag (0.0-4.7) ng/mL Stl Occult Blood (IFOB) (NEGATIVE) C. difficile Screen (NEGATIVE) C.difficile 027-NAP1-B1 (NEGATIVE) Micro Results-Entire Visit: Microbiology 03/10/24 20:15 Blood Culture - Preliminary Blood 03/10/24 20:24 Blood Culture - Preliminary Blood Accuchecks Date 03/12/24 Date 03/11/24 Time 07:38 Time 16:24 - Radiology Exams Ordered Rad Exams-Entire Visit: Radiology Procedures Category Date Time Status ABDOMEN AND PELVIS W/0 CONTRAS [CT] Stat Exams 03/10/24 19:28 Completed Discharge Exam General Appearance: no apparent distress, alert Neurologic Exam: alert, oriented x 3, cooperative, normal mood/affect, nml cerebellar function, sensation nml, No motor deficits Eye Exam: PERRL, EOMI, eyes nml inspection Ears, Nose, Throat Exam: normal ENT inspection, pharynx normal, moist mucous membranes Neck Exam: normal inspection, non-tender, supple, full range of motion Respiratory Exam: normal breath sounds, lungs clear, No respiratory distress Cardiovascular Exam: regular rate/rhythm, normal heart sounds Gastrointestinal/Abdomen Exam: soft, No tenderness, No mass Pelvic Exam: deferred Rectal Exam: deferred Back Exam: normal inspection, normal range of motion, No CVA tenderness, No vertebral tenderness Extremity Exam: normal inspection, normal range of motion Skin Exam: normal color, warm, dry Wound Assessment: Skin/Wound Assessment Wound/Incision Assessment Start: 03/10/24 23:36 Text: Status: Active Freq: Q6H Protocol: Document 03/12/24 08:00 LUCERO (Rec: 03/12/24 08:08 KOREYNE [id number]) Wound/Incision Assessment Left Wrist Wound Assessment Shift Assessment Wound Type Skin Tear Wound Stage Non Pressure Wound Drainage Amount None Drainage Odor None/Absent General Appearance Open to air,Clean/Dry Left Elbow Wound Assessment Shift Assessment Wound Type Skin Tear Wound Stage Non Pressure Wound Dressing Status Dry & Intact Drainage Amount None Primary Dressing TEGADERM Wound Photo Photo Taken No Final Diagnosis/Problem List - Final Discharge Diagnosis/Problem (1) Diarrhea Current Visit: Yes Status: Acute Code(s): R19.7 - DIARRHEA, UNSPECIFIED (2) Hypokalemia Current Visit: Yes Status: Resolved Code(s): E87.6 - HYPOKALEMIA (3) Hyponatremia Current Visit: Yes Status: Acute Code(s): E87.1 - HYPO-OSMOLALITY AND HYPONATREMIA (4) Leukocytosis Current Visit: Yes Status: Acute Code(s): D72.829 - ELEVATED WHITE BLOOD CELL COUNT, UNSPECIFIED (5) Type II diabetes mellitus Current Visit: Yes Status: Acute (6) Breast nodule Current Visit: Yes Status: Acute Assessment & Plan: (1) Diarrhea Current Visit: Yes Status: Acute Assessment & Plan: -Ongoing few weeks got worse for last 5-7 days -Recently started on ozympic one week ago -CT abdomen pelvis remained unremarkable except concerning some inflammatory changes -Patient underwent colonoscopy last year remained negative -Pending stool studies/pending C. difficile -Continue supportive therapy with IV fluids -03/11 Consulted Genral surgery -Made pt NPO -Sodium Bicarb drip started -C. Difficle results still pending - CBC and CMP reviewed 03/12 - No diarrhea since admission - Per GS f/u OP for colonoscopy - appointment made - sxs likely 2:2 starting Ozempic 1 week ago- recommend OP f/u with PCP for other medication options. - CBC and CMP reviewed Code(s): R19.7 - DIARRHEA, UNSPECIFIED (2) Hypokalemia Current Visit: Yes Status: Resolved Assessment & Plan: -Potassium 2.9 -Will replace and recheck it in the morning -Calcium low but corrected should be Ok 03/11 -Resolved potassium 4.1 Code(s): E87.6 - HYPOKALEMIA (3) Hyponatremia Current Visit: Yes Status: Acute Assessment & Plan: -Seems hypovolemic hyponatremia due to GI loss -Continue IV fluids -Keep monitoring sodium closely 03/11 -Resolved Sodium 137 Code(s): E87.1 - HYPO-OSMOLALITY AND HYPONATREMIA (4) Leukocytosis Current Visit: Yes Status: Acute Assessment & Plan: -Due to possible underlying C. difficile infection -Keep following up cultures -I will keep holding antibiotic until C. difficile gets reported 03/11- -WBC 27.2 improving -C. Difficile results still pending 03/12 - CBC reviewed - WBC 21.7- improved- f/u OP with PCP for repeat labs. Code(s): D72.829 - ELEVATED WHITE BLOOD CELL COUNT, UNSPECIFIED (5) Type II diabetes mellitus Current Visit: Yes Status: Acute Assessment & Plan: -Last HbA1c reported 6.0 on 03/06 Controlled -patient is on Farxiga at home currently, -Currently started on Ozempic 1 week ago -Continue with above for diabetes associated neuropathies (6) Breast nodule Current Visit: Yes Status: Acute Assessment & Plan: -Soft tissue right breast nodule noted upon CT -Needs ultrasound breast nonemergent care as outpatient Code(s): N63.0 - UNSPECIFIED LUMP IN UNSPECIFIED BREAST Code(s): N63.0 - UNSPECIFIED LUMP IN UNSPECIFIED BREAST (7) Metabolic acidosis Current Visit: Yes Status: Acute Assessment & Plan: 03/11 - bicarb gtt started - Co2 13 03/12 - resolved- lab reviewed - bicarb gtt stopped Code(s): E87.20 - ACIDOSIS, UNSPECIFIED (8) Hypermagnesemia Current Visit: Yes Status: Acute Assessment & Plan: - Mg+ 2.4 - tele - F/u OP for repeat labs Code(s): E83.41 - HYPERMAGNESEMIA (9) Hypocalcemia Current Visit: Yes Status: Acute Assessment & Plan: - Corrected Ca+ 7.6 - Started Tums BID - F/U OP with PCP for repeat labs Code(s): E83.51 - HYPOCALCEMIA - Discharge Discharge Date: 03/12/24 Disposition: HOME HEALTH SERVICE Condition: Stable Prescriptions: New Calcium Carbonate 750 mg [Tums EX 750 MG] 750 mg PO BID 10 Days #20 tablet Continue Gabapentin [Neurontin] 300 mg PO HS Atorvastatin Calcium 40 mg PO DAILY Ferrous Sulfate 325 mg [Feosol 325 mg] 1 tab PO DAILY Aspirin [Adult Low Dose Aspirin EC] 81 mg PO UD Dapagliflozin Propanediol [Farxiga] 1 tab PO DAILY Additional Instructions: YOU WERE SET UP WITH [employer]. THEY WILL CALL YOU TO ARRANGE A TIME TO COME SEE YOU. IF YOU NEED ANYTHING BEFORE THEN, YOU CAN REACH THEM AT [phone] TO ARRANGE A RIDE THRU YOUR INSURANCE YOU CAN CALL [employer] AT [phone] [employer] ALSO GIVES LOCAL RIDE FOR MO PAYMENT- YOU CAN REACH THEM AT . * WHEN CALLING EITHER PLACE- MUST CALL SEVERAL DAYS AHEAD OF TIME TO SCHEDULE Will need Mammogram with ultrasound ordered by PCP. Follow up with surgery as scheduled. Will need repeat labs this week with PCP including repeat CBC to check WBC and CMP with Mg+ to recheck magnesium and calcium. Follow up with: ADE WANG DO [Primary Care Provider] - 03/18/24 3:00 pm JACI RICHARDS [ACTIVE STAFF] - 03/28/24 10:55 am
[2024-03-12 11:57] VITALS: BP 106/55; PULSE 58; TEMP 97.7; O2SAT 97
--- NOTE | 2024-03-13 10:50 | CONS ---
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 I am not sure if he was notified or not. She apparently had a history of C difficile in the past. Dr. Trujillo actually did a colonoscopy in the past 2 to 3 months, back in November, for some thickened colon. Apparently, she had some blood tests here or stool tests here that she is a carrier although there is not an active infection currently. She has had some leukocytosis. She had a CT scan, did not show any free air. She has thickening of her colon. It sounds like when Dr. Trujillo scoped her she had similar finding. Otherwise, there are frequent stools, occasionally control issues, decreased appetite. The patient denies any current abdominal pain. She states no bloody stools currently. She wants to go home. PAST MEDICAL HISTORY: Hypercholesterolemia, hypertension, cataracts, type 2 diabetes, had some renal insufficiency in the past, had some coronary stents in the past. PAST SURGICAL HISTORY: Coronary stents, cholecystectomy, carpal tunnel, and ankle surgery and a tim in her left leg. HOME MEDICATIONS: Prior to admission, gabapentin, atorvastatin, ferrous sulfate, aspirin, and Farxiga. ALLERGIES: Penicillin. FAMILY HISTORY: Negative in regard to this problem. SOCIAL HISTORY: No smoking or alcohol abuse. REVIEW OF SYSTEMS: Twelve systems reviewed. No chest pain or palpitations. Other systems negative or noncontributory as above. PHYSICAL EXAMINATION: GENERAL: No acute distress. HEENT: Sclerae nonicteric. NECK: No JVD. CHEST: Equal excursion, nonlabored breathing. ABDOMEN: Soft. No tenderness. EXTREMITIES: No cyanosis. NEUROLOGIC: Alert. PSYCHIATRIC: Appropriate mood and affect. LABORATORY DATA AND TESTS: White count was 33 in the past, down to 27 according to the staff. IMPRESSION: 1. The patient is a 73-year-old with some chronic loose stools. She had thickened colon 2 to 3 months ago and underwent colonoscopy by Dr. Trujillo. She has been at least a carrier of C difficile whether she had previous before. He did not find any masses at the time. Did took some samples. She has a thickened colon on a CAT scan this admission according to the staff. Radiologist's report, no free air. She has a benign soft abdomen. Discussed at length with the patient. She is in no acute distress, nonemergent surgical intervention. Could discuss with Dr. Trujillo. I am sure he would want to consider re-scoping her as she just had one 2 to 3 months ago and sound like at least on CAT scan she just has a thickened colon, so she likely has colitis. Whether from past history of C difficile, infectious, inflammatory or other etiology is unclear. Will check with him if he thought she would benefit from any followup endoscopy, which I am not sure she would, but we will see what his thoughts are. Otherwise, may need to consider Infectious Disease opinion given her colitis and her leukocytosis or maybe a medical GI opinion from a bicycle courier. Either way, no emergent surgery necessary and will discuss with Dr. Trujillo. The patient actually says she wants to go home. If she is released, she can follow up in the office with Dr. Trujillo as he has done her recent endoscopy. Otherwise, continue medical management of her multiple medical problems. 2. Heart disease, renal disease, hyperlipidemia, hypertension, asthma, diabetes.
[2024-03-13 17:12] LABS: Fats, Neutral Normal (.); Fats, Total Normal (.)
== END 2024-03-12 12:09 | disposition home health service (06) ==
LOC: ED 18:34 → EEVIPCON 18:34 → MED SURG 22:15 → EEVIPCON 22:15
PROVIDERS: ADMIT Internal Medicine; ATTEND Internal Medicine
DX: R19.7 Diarrhea, unspecified (principal); E87.6 Hypokalemia; E87.1 Hypo-osmolality and hyponatremia; D72.829 Elevated white blood cell count, unspecified; E11.9 Type 2 diabetes mellitus without complications; N63.10 Unspecified lump in the right breast, unspecified quadrant; E87.20 Acidosis, unspecified; E83.41 Hypermagnesemia; E83.51 Hypocalcemia; E78.5 Hyperlipidemia, unspecified; I10 Essential (primary) hypertension; Z79.899 Other long term (current) drug therapy
CPT/HCPCS: 0241U; 36000; 36415; 74176; 80048; 80053; 81001; 82378; 82705; 82947; 83605; 83690; 83735; 84132; 84134; 84439; 84443; 84484; 85025; 85027; 85652; 87040; 87046; 87177; 87209; 87328; 87329; 87493; 96360; 96365; 96367; 96374; 99285; G0328; Q3014; 82274; 96375; G0378; J0696; J1817; J2919; J3480; A9270-GY

== ENCOUNTER 2024-09-11 15:20 | Emergency (ER) | payer MEDICARE, OTHER ==
--- NOTE | 2024-09-11 15:43 | ERPHSYRPT ---
- History of Present Illness Source: patient Exam Limitations: no limitations Physician History: Patient fell because she lost her balance and slipped. Her feet slipped out in front of her. She hit the back of her head. There is no loss of consciousness. There was no syncopal episode. She is on blood thinners. She is not having bad headache. She says she feels some tenderness at the point of contact. She does not have any neck pain. She has no neurological deficits. She does not have a chest pain or shortness of breath.There is an abrasion on her right forearm but there is noMajor trauma to this scalp. There is a little bit of bruising but no abrasions or anything. Allergies/Adverse Reactions: Penicillins Allergy (Mild, Verified 09/11/24 15:45) Home Medications: Gabapentin [Neurontin] 300 mg PO HS 07/06/21 [History] Atorvastatin Calcium 40 mg PO DAILY 12/06/23 [History] Aspirin [Adult Low Dose Aspirin EC] 81 mg PO UD 02/06/24 [History] Dapagliflozin Propanediol [Farxiga] 10 mg PO DAILY 03/10/24 [History] Apixaban [Eliquis] 5 mg PO BID 09/11/24 [History] Furosemide 40 mg [Lasix 40 MG] 40 mg PO DAILY 09/11/24 [History] Linagliptin [Tradjenta] 5 mg PO DAILY 09/11/24 [History] Pioglitazone HCl 30 mg PO DAILY 09/11/24 [History] Potassium Chloride 10 meq PO DAILY 09/11/24 [History] dilTIAZem HCL [Cardizem] 30 mg PO BID 09/11/24 [History] Hx Tetanus, Diphtheria Vaccination/Date Given: Yes Hx Influenza Vaccination/Date Given: Yes Hx Pneumococcal Vaccination/Date Given: Yes Travel Risk - Emerging Infectious Disease Are you exhibiting symptoms associated with any current EIDs: No Symptoms: Diarrhea - Review of Systems Constitutional: No Symptoms Eyes: No Symptoms Ears, Nose, & Throat: No Symptoms Skin: No Symptoms Neurological: No Symptoms Psychological: No Symptoms - Past Medical History Pertinent Past Medical History: Yes Neurological History: Dementia ENT History: Cataracts Cardiac History: High Cholesterol, Hypertension, Other Respiratory History: Asthma Endocrine Medical History: Diabetes Type II Musculoskeletal History: Fractures GI Medical History: No Pertinent History History: Renal Disease Psycho-Social History: Depression Female Reproductive Disorders: No Pertinent History Other Medical History: stints in the heart - Past Surgical History Past Surgical History: Yes Neuro Surgical History: No Pertinent History Cardiac: Cardiac Catheterization, Cardiac Stent Respiratory: No Pertinent History Gastrointestinal: Cholecystectomy Genitourinary: No Pertinent History Musculoskeletal: No Pertinent History Female Surgical History: No Pertinent History Other Surgical History: carpal tunnel. lt ankle surgery, tim in left leg Significant Family History: no pertinent family hx - Social History Smoking Status: Never smoker Exposure to second hand smoke: No Drug Use: none - Social Determinants of Health Will the patient participate in the screening: Yes Do you worry about a steady place to live?: No In the past 12 months,have you had to go without utilities?: No Transportation Issues: No Has anyone in your support network made you feel unsafe?: No Have you or anyone in your house had to go w/o enough food: No - Nursing Vital Signs Nursing Vital Signs: Initial Vital Signs Temperature 97.7 F 09/11/24 15:41 Pulse Rate 71 09/11/24 15:41 Respiratory Rate 17 09/11/24 15:41 Blood Pressure 114/54 09/11/24 15:41 O2 Sat by Pulse Oximetry 99 09/11/24 15:41 Pain Scale Pain Intensity 0 - Geni Coma Score Best Eye Response (Geni): (4) open spontaneously Best Verbal Response (Geni): (5) oriented Best Motor Response (Geni): (6) obeys commands [place] Total: 15 - Physical Exam General Appearance: no apparent distress Head Injury: no evidence of injury Eye Exam: bilateral eye: normal inspection, PERRL, EOMI ENT Exam: airway nml, No evidence of ENT injury, No dental injury Neck Exam: supple, trachea midline, full range of motion, normal alignment, normal inspection, No pain on movement of neck, No tenderness, No mid-line tenderness Cardiovascular/Respiratory Exam: chest non-tender, normal breath sounds, regular rate/rhythm Back Exam: normal inspection Extremity Exam: non-tender Mental Status Exam: alert, oriented x 3 service coordinator Exam: normal hearing, normal speech Coordination/Gait Exam: normal finger to nose, normal gait Motor/Sensory Exam: no motor deficit, no sensory deficit Skin Exam: normal color Ordered Tests: Active Orders 24 hr Category Date Time Status HEAD WITHOUT CONTRAST [CT] Stat Exams 09/11/24 16:17 Completed - Progress Progress: unchanged Progress Note: Patient was stable throughout stay. CT of her head showed no acute findings. I think she is stable for discharge. 09/11/24 17:42 - Departure Departure Disposition: Home Clinical Impression: Head contusion Condition: Stable Critical Care Time: No Referrals: RADHA ANDINO NP [Primary Care Provider, [facility]] - Follow up/PCP as directed Instructions: Preventing falls in adults
[2024-09-11 15:46] VITALS: TEMP 97.7
--- NOTE | 2024-09-11 17:09 | XRAY ---
Indication: Status post fall. Blood thinner therapy. Multiple contiguous axial images obtained through the head without contrast. Comparison: November 17, 2021 Normal appearing brain parenchyma, ventricles, and bony calvarium for patient's age. Visualized paranasal sinuses and mastoid air cells are clear. Impression: Continued normal CT head without contrast exam.
[2024-09-11 18:24] VITALS: BP 118/64; PULSE 68; RESP 18; O2SAT 100
== END 2024-09-11 18:25 | disposition home or self-care (01) ==
LOC: ED 15:20
DX: S00.93XA Contusion of unspecified part of head, initial encounter (principal); W01.0XXA Fall on same level from slipping, tripping and stumbling without subsequent striking against object, initial encounter; E78.5 Hyperlipidemia, unspecified; I10 Essential (primary) hypertension; E11.9 Type 2 diabetes mellitus without complications; Z79.01 Long term (current) use of anticoagulants; Z79.84 Long term (current) use of oral hypoglycemic drugs; Z79.899 Other long term (current) drug therapy
CPT/HCPCS: 70450; 99284

== ENCOUNTER 2024-09-18 14:05 | Emergency (ER) | payer MEDICARE, OTHER ==
[2024-09-18 15:10] VITALS: RESP 18; TEMP 97.8
--- NOTE | 2024-09-18 15:33 | XRAY ---
Indication: Pain and swelling. Comparison: February 25, 2024 3 view left hand demonstrates new nondisplaced oblique fracture shaft 4th proximal phalanx with soft tissue swelling. Remaining hand unchanged again with osteopenia and degenerative changes.
[2024-09-18 16:05] VITALS: BP 148/62; PULSE 62; O2SAT 98
--- NOTE | 2024-09-18 16:16 | ERPHSYRPT ---
- History of Present Illness Time Seen by Provider: 09/18/24 15:06 Source: patient Exam Limitations: no limitations Patient Subjective Stated Complaint: Pt states "I was walking my dog and he went after another one and I pulled the leash and hurt my finger." Triage Nursing Assessment: Pt presented alert and oriented X 3, skin wpd. Pt ambulates with an upright steady gait, able to speak in clear full sentences. Pt left hand is swollen and pt fourth digit is swollen Physician History: 74 years old female [id number] presented in the ER with left hand fourth digit proximal phalanx pain after she pulled her dog leash as another dog jumped on him and accidentally injured her finger almost couple of hours ago. Patient reports minimal dull aching pain with some swelling. Denies any fall or trauma otherwise. Allergies/Adverse Reactions: Penicillins Allergy (Mild, Verified 09/11/24 15:45) Home Medications: Gabapentin [Neurontin] 300 mg PO HS 07/06/21 [History] Atorvastatin Calcium 40 mg PO DAILY 12/06/23 [History] Aspirin [Adult Low Dose Aspirin EC] 81 mg PO UD 02/06/24 [History] Dapagliflozin Propanediol [Farxiga] 10 mg PO DAILY 03/10/24 [History] Apixaban [Eliquis] 5 mg PO BID 09/11/24 [History] Furosemide 40 mg [Lasix 40 MG] 40 mg PO DAILY 09/11/24 [History] Linagliptin [Tradjenta] 5 mg PO DAILY 09/11/24 [History] Pioglitazone HCl 30 mg PO DAILY 09/11/24 [History] Potassium Chloride 10 meq PO DAILY 09/11/24 [History] dilTIAZem HCL [Cardizem] 30 mg PO BID 09/11/24 [History] Hx Tetanus, Diphtheria Vaccination/Date Given: Yes Hx Influenza Vaccination/Date Given: Yes Hx Pneumococcal Vaccination/Date Given: Yes Immunizations Up to Date: No Travel Risk - International Travel Have you traveled outside of the country in past 3 weeks: No - Emerging Infectious Disease Are you exhibiting symptoms associated with any current EIDs: No Symptoms: Diarrhea - Review of Systems Constitutional: No Symptoms Ears, Nose, & Throat: No Symptoms Respiratory: No Symptoms Cardiac: No Symptoms Musculoskeletal: Injury, Joint Pain, Joint Swelling Skin: No Symptoms Neurological: No Symptoms - Past Medical History Pertinent Past Medical History: Yes Neurological History: Dementia ENT History: Cataracts Cardiac History: High Cholesterol, Hypertension, Other Respiratory History: Asthma Endocrine Medical History: Diabetes Type II Musculoskeletal History: Fractures GI Medical History: No Pertinent History History: Renal Disease Psycho-Social History: Depression Female Reproductive Disorders: No Pertinent History Other Medical History: stints in the heart - Past Surgical History Past Surgical History: Yes Neuro Surgical History: No Pertinent History Cardiac: Cardiac Catheterization, Cardiac Stent Respiratory: No Pertinent History Gastrointestinal: Cholecystectomy Genitourinary: No Pertinent History Musculoskeletal: No Pertinent History Female Surgical History: No Pertinent History Other Surgical History: carpal tunnel. lt ankle surgery, tim in left leg Significant Family History: no pertinent family hx - Social History Smoking Status: Never smoker Exposure to second hand smoke: Yes Drug Use: none - Social Determinants of Health Will the patient participate in the screening: Yes Do you worry about a steady place to live?: No Do you have any problems with any of the following?: No known problems In the past 12 months,have you had to go without utilities?: No Transportation Issues: No Has anyone in your support network made you feel unsafe?: No Have you or anyone in your house had to go w/o enough food: No - Nursing Vital Signs Nursing Vital Signs: Initial Vital Signs Temperature 97.8 F 09/18/24 15:05 Pulse Rate 63 09/18/24 15:05 Respiratory Rate 18 09/18/24 15:05 Blood Pressure 150/66 09/18/24 15:05 O2 Sat by Pulse Oximetry 100 09/18/24 15:05 Pain Scale Pain Intensity 2 - Physical Exam General Appearance: no apparent distress Neck Exam: normal inspection Cardiovascular/Respiratory Exam: normal breath sounds, regular rate/rhythm Wrist Exam: normal inspection, non-tender, no evidence of injury, normal ROM Hand Exam: bone tenderness, limited ROM (Left hand fourth digit metacarpophalangeal joint and proximal phalanx tenderness. Intact distal neurovascular), soft tissue tenderness Neuro/Tendon Exam: normal sensation, normal motor functions, normal tendon functions Mental Status Exam: alert, oriented x 3, cooperative Skin Exam: normal color SpO2 Interpretation: normal SpO2: 98 O2 Delivery: Room Air Ordered Tests: Active Orders 24 hr Category Date Time Status HAND (MINIMUM 3 VIEWS) Stat Exams 09/18/24 15:10 Completed - Progress Progress: unchanged Progress Note: 09/18/24 16:13 74 years old right-handed dominant is evaluated in the ER for left hand fourth digit pain and swelling after she pulled on dog leash earlier today. She has some swelling and tenderness. Offered pain medication which she declined. X-rays showed nondisplaced fracture proximal phalanx interpreted by me followed by official read. Yogesh taping done, recommended taking Tylenol as needed, intermittent ice application and outpatient orthopedic follow-up. Discussed signs symptoms of worsening needing return to ER which she seems understanding. Stable for discharge. 09/18/24 16:14 Counseled pt/family regarding: diagnosis, need for follow-up, rad results Medical Desision Making - Diagnostic Testing Diagnostic test were ordered, analyzed, and reviewed by me: Yes Radiological Interpretation: Interpreted by me, Reviewed by me - Departure Departure Disposition: Home Clinical Impression: Finger fracture, left Condition: Stable Critical Care Time: No Referrals: RADHA ANDINO NP [Primary Care Provider, [facility]] - Follow up with PCP 1 day GORDON ROBERTSON DO [ACTIVE STAFF, ORTHOPEDICS] - Follow up/PCP as directed Referral Note: Call for appointment for reevaluation Instructions: Finger Fracture (DC) Additional Instructions: Intermittent ice application. Tylenol as needed. Follow-up with orthopedics for reevaluation. Return to ER for any worsening.
== END 2024-09-18 16:52 | disposition home or self-care (01) ==
LOC: ED 14:05
DX: S62.645A Nondisplaced fracture of proximal phalanx of left ring finger, initial encounter for closed fracture (principal); X50.0XXA Overexertion from strenuous movement or load, initial encounter; Y93.K1 Activity, walking an animal; Z79.84 Long term (current) use of oral hypoglycemic drugs; Z79.01 Long term (current) use of anticoagulants; Z79.899 Other long term (current) drug therapy
CPT/HCPCS: 73130; 99282; 99283